=== PATIENT | female | born 1935 | race Caucasian/White ===

== ENCOUNTER → 2016-08-02 | Day surgery (SDC) | payer OTHER ==
[~2016-08-02] MED LIST: ANCEF VIAL 1 GM ONE; BACTROBAN OINT ONE; DIPRIVAN VIAL ONE; MARCAINE 0.25% WITH EPI IJ ONE; NS 1000 ML 1,000 ML ONE; NS IRRIGATION 1000 ML 1,000 ML with BACITRACIN VIAL 50,000 UNT IR ONE; VERSED ONE
[2016-08-02] MEDS: NS 50 ML IV + SPIKE MINIBAG* 50 ML IV ONE ×2 (12:56→14:00)
[2016-08-02 15:11] VITALS: BP 158/76
== END | disposition home or self-care (01) | DRG 581 ==
LOC: SURG1 12:09
PROVIDERS: ATTEND Orthopaedic Surgery
PROC: 0MD30ZZ Extraction of Right Elbow Bursa and Ligament, Open Approach (ICD-10-PCS; principal; 2016-08-02 14:00)
PROC: 0JQG0ZZ Repair Right Lower Arm Subcutaneous Tissue and Fascia, Open Approach (ICD-10-PCS; principal; 2016-08-02 14:00)
DX: S51.012A Laceration without foreign body of left elbow, initial encounter (principal); X58.XXXA Exposure to other specified factors, initial encounter
CPT/HCPCS: 87070; 87075; 87205; 99100; A4222; S0020; J0690; J2250; J3490

== ENCOUNTER → 2016-08-14 | Outpatient (CLI) | payer OTHER ==
[2016-08-02 15:11] VITALS: BP 158/76
--- NOTE | 2016-08-14 14:20 | RAD ---
HISTORY: Followup wrist fracture Study: Two views right forearm Comparison: 07/13/2016 Findings: Distal compression plate and screws are noted traversing the previously described radial fracture. T here are 2 K-wires also projected at the radiocarpal joint. No obvious malalignment. The remaining s oft tissues and osseous structures are stable and intact. IMPRESSION: 1. Interval ORIF of the distal radius as described without complication. Reported By:
== END ==
LOC: RAD 13:25
PROVIDERS: ATTEND Orthopaedic Surgery
DX: S52.591A Other fractures of lower end of right radius, initial encounter for closed fracture (principal); X58.XXXA Exposure to other specified factors, initial encounter
CPT/HCPCS: 73090

== ENCOUNTER 2017-05-15 09:13 | Inpatient (IN) | payer OTHER ==
--- NOTE | 2017-05-15 09:30 | DR.GENAD ---
HPI - HPI Comment HPI Comment: OBVIOUS DEFORMITY LEFT HIP. FELL ACCIDENTALLY. DENIES CHEST PAIN, ABDOMINAL PAIN OR DIZZINESS. - Complaint/Symptoms Chief Complaint Doctors Comments: FELL, PAIN LEFT LOWER EXTREMITY AND HIP. Chief Complaint:: fell. lt lower extremity and hip pain with shortening and rotation. - Nurses notes reviewed Nurses Notes Review: Yes - Source History Provided: Patient, Family Member - Mode of Arrival Mode of Arrival: Wheelchair - Timing Came on: Suddenly - Duration Duration: Constant Duration: Hours - Severity Severity: Moderate PMH - PMH Past Medical History: Anxiety Past Surgical History: Yes Surgical History: Appendectomy - Social History Do you use any recreational Drugs:: No ROS - Review of Systems Constitutional: No Symptoms Reported Eyes: No Symptoms Reported ENTM: No Symptoms Reported Respiratoy: No Symptoms Reported Cardiovascular: No Symptoms Reported Gastrointestinal/Abdominal: No Symptoms Reported Genitourinary: No Symptoms Reported Neurological: No Symptoms Reported Musculoskeletal: Hip Integumentary: No Symptoms Reported Hematologic/Lymphatic: No Symptoms Reported Endocrine: No Symptoms Reported All Other Systems: Reviewed and Negative PE - Vital Signs Vitals: Temperature 97.9 F Pulse Rate 85 Respiratory Rate 20 Blood Pressure [Right Arm] 134/64 Blood Pressure [Left Arm] 149/67 Blood Pressure 194/87 O2 Sat by Pulse Oximetry 96 - General Limitations: No Limitations General Appearance: Alert - Head Head Exam: Normal Inspection - Eyes Eye exam: Normal Appearance - ENT ENT Exam: Normal External Ear Exam External Ear Exam: Normal External Inspection TM/Canal Exam: Bilateral Normal Nose Exam: Normal Nose Exam Mouth Exam: Normal Inspection Throat Exam: Normal Inspection - Chest Chest Inspection: Symmetric Chest Wall Rise - Respiratory Respiratory Exam: Normal Lung Sounds Bilat Respiratory Exam: Bilateral Clear to Auscultation - Cardiovascular Cardiovascular Exam: Regular Rate, Normal Rhythm, Normal Heart Sounds - Abdominal Exam Abdominal Exam: Normal Bowel Sounds, Soft. negative: Tenderness - Extremities Extremities Exam: Tenderness - Back Back Exam: Normal Inspection - Neurologic Neurological Exam: Alert, Oriented X3 - Psychiatric Psychiatric Exam: Normal Affect, Normal Mood - Skin Skin Exam: Normal Color MDM - Additional Information Additional Information Obtained From: Family - Differential Diagnosis Differential Diagnosis: LT HIP FRACTURE, CONTUSION LEFT LEG Course - Treatment Treatment: SEE ORDERS. PAIN MED GIVEN IN ED. - Consultation Consultation Comments: DISCUSS PATIENT WITH DR. GOMEZ. MEDICINE TO ADMIT PATIENT FOR SURGERY IN AM. DR. VIERA ACCEPTED PATIENT FOR ADMISSION. - Education/Counseling Education/Counseling: Patient, Family, Education Educated On: Treatment, Diagnosis ROR - Labs Reviewed Laboratory Results Reviewed?: Yes Result Diagrams: 05/15/17 10:55 05/15/17 10:55 - XRAY XRAY Interpreted by: Radiologist XRAY Findings: REPORT DISCUSS WITH PATIENT AND HER DAUGHTERS - EKG Rhythm: NSR (EKG NOTED) - Diagnosis Discharge Problem: Fracture of neck of left femur Qualifiers: Encounter type: initial encounter Fracture type: closed Qualified Code(s): S72.002A - Fracture of unspecified part of neck of left femur, initial encounter for closed fracture - Discharge Plan Disposition: ADMITTED INPATIENT Condition: Stable - Follow ups/Referrals - Instructions
[2017-05-15] MEDS ORDERED: NAROPIN EPIDURAL 0.2% ONE (10:12)
[2017-05-15] MEDS ORDERED: XYLOCAINE 2 % (PLAIN) ONE (10:12)
[2017-05-15] MEDS ORDERED: VERSED ONE (10:12)
[2017-05-15] MEDS ORDERED: NEO-SYNEPHRINE INJ ONE (10:35)
[2017-05-15] MEDS ORDERED: ZOFRAN INJ 4 MG VIAL IVP ONE (10:43)
[2017-05-15] MEDS ORDERED: MORPHINE SULFATE INJ 2 MG INJ IVP ONE (10:43)
--- NOTE | 2017-05-15 10:45 | RAD ---
HISTORY: Injury, fall, left hip pain Study: AP pelvis Comparison: None Findings: The bones are osteopenic. The pelvic bones and SI joints are intact as is the left hip joint. However there is a comminuted intertrochanteric fracture of the left femoral neck with associated avulsion o f the lesser trochanter. IMPRESSION: Comminuted intertrochanteric fracture left femoral neck Osteopenia Reported By:
--- NOTE | 2017-05-15 10:45 | RAD ---
HISTORY: Injury, fall, left hip pain Study: Left femur AP and lateral Comparison: None Findings: The left hip joint is intact. However there is a comminuted intertrochanteric fracture with avulsion of the lesser trochanter. There is slight cephalad displacement of the distal fracture fragment. IMPRESSION: Comminuted intertrochanteric fracture left femoral neck Reported By:
--- NOTE | 2017-05-15 10:56 | RAD ---
History: Preop for left hip fracture Study: Portable AP chest Comparison: July 23, 2016 Findings: The lungs are clear and the heart and mediastinum are unremarkable. There is no edema or ef fusion. Impression: No active cardiopulmonary disease Reported By:
[2017-05-15 11:04] LABS: BASOPHILS # (AUTO) 0.1 X10^3/uL (0.0-0.1); BASOPHILS % (AUTO) 1.3 % (0.2-1.0); EOSINOPHILS # (AUTO) 0.3 x10^3/uL (0.0-0.2); EOSINOPHILS % (AUTO) 2.7 % (0.9-2.9); HEMATOCRIT 36.5 % (36.0-47.0); LYMPHOCYTES # (AUTO) 0.8 X10^3/uL (1.3-2.9); LYMPHOCYTES % (AUTO) 7.7 % (21.0-51.0); MEAN CORPUSCULAR HEMOGLOBIN 27.8 pg (27.0-34.0); MEAN CORPUSCULAR HGB CONC 32.9 g/dL (33.0-35.0); MEAN CORPUSCULAR VOLUME 84.7 fL (80.0-100.0); MEAN PLATELET VOLUME 8.5 fL (7.4-11.0); MONOCYTES # (AUTO) 0.5 x10^3/uL (0.3-0.8); MONOCYTES % (AUTO) 4.6 % (0.0-13.0); NEUTROPHILS # (AUTO) 8.8 x10^3/uL (2.2-4.8); NEUTROPHILS % (AUTO) 83.7 % (42.0-75.0); PLATELET COUNT 313 X10^3/uL (150.0-450.0); RED BLOOD COUNT 4.31 X10^6/uL (3.5-5.4); RED CELL DISTRIBUTION WIDTH 15.8 % (11.6-16.5); WHITE BLOOD COUNT 10.5 X10^3/uL (3.6-10.0)
[2017-05-15 11:18] LABS: ALANINE AMINOTRANSFERASE 27 Units/L (12-78); ALBUMIN 3.5 g/dL (3.4-5.0); ALKALINE PHOSPHATASE 139 Units/L (46-116); ASPARTATE AMINO TRANSFERASE 33 Units/L (15-37); BLOOD UREA NITROGEN 20 mg/dL (7-18); CALCIUM 8.7 mg/dL (8.5-10.1); CARBON DIOXIDE 25.9 mmol/L (21-32); CHLORIDE 110 mmol/L (98-107); COR NA(FOR HYPERGLY) 145 mmol/L (136-145); CREATININE 0.95 mg/dL (0.55-1.02); SODIUM 145 mmol/L (136-145); TOTAL PROTEIN 6.8 g/dL (6.4-8.2); eGFR BLACK RACES > 60 (>60); eGFR NON BLACK RACES > 60 (>60)
[2017-05-15] MEDS ORDERED: MORPHINE SULFATE INJ 2 MG INJ ONE (11:20)
[2017-05-15] MEDS ORDERED: ZOFRAN INJ 4 MG VIAL ONE (11:20)
--- NOTE | 2017-05-15 12:00 | CT ---
HISTORY: Injury, fall, left hip pain Study: CT left hip without contrast Comparison: Plain films 05/15/2017 Technique: Axial noncontrast images with coronal and sagittal reformats. Three-dimensional reformats were also performed. Dose reduction procedures were used with mA/kv adjusted for body size. Findings: The bones are osteopenic. The sacrum, SI joints, and pelvic bones are intact. The left hip joint is i ntact. There is a comminuted intertrochanteric fracture of the left femoral neck associated with avul milka of the lesser trochanter. There is cephalad displacement of the distal fracture fragment. The ri ght hip joint and proximal femur are intact. IMPRESSION: Comminuted intertrochanteric fracture of the left femoral neck with associated avulsion of the lesser trochanter and cephalic displacement of the distal fracture fragment. Osteopenia Reported By:
[2017-05-15 12:16] LABS: BILIRUBIN,URINE NEGATIVE (NEGATIVE); BLOOD/HEMOGLOBIN,URINE 1+ (NEGATIVE); GLUCOSE, URINE NEGATIVE (NEGATIVE); KETONES,URINE NEGATIVE (NEGATIVE); LEUKOCYTE ESTERASE ,URINE 1+ (NEGATIVE); NITRITES,URINE POSITIVE (NEGATIVE); PROTEIN,URINE 1+ (NEGATIVE); UROBILINOGEN,URINE NORMAL (NORMAL)
[2017-05-15 12:25] LABS: APPEARANCE,URINE HAZY (CLEAR); BACTERIA,URINE 2+ /HPF (NEGATIVE); COLOR,URINE YELLOW (YELLOW); RBC,URINE 0-3 /HPF (NEGATIVE); SQUAMOUS EPITHELIAL CELL,UR RARE /HPF (NEGATIVE)
[2017-05-15] MEDS ORDERED: NS 1000 ML 1,000 ML ONE (12:40)
[2017-05-15] MEDS ORDERED: DIPRIVAN VIAL 20 ML ONE (12:41)
[2017-05-15] MEDS ORDERED: KETALAR ONE (12:41)
[2017-05-15] MEDS ORDERED: XYLOCAINE 1 % (PLAIN) ONE (13:04)
[2017-05-15] MEDS ORDERED: MARCAINE 0.25% INJ ONE (13:12)
[2017-05-15] MEDS ORDERED: ADRENALINE CHL INJ ONE (13:13)
[2017-05-15] MEDS ORDERED: NAROPIN EPIDURAL 0.2% 400 MG, NS 250 ML IV 200 ML EPI PRN ×2 (14:00)
[2017-05-15] MEDS ORDERED: Q PUMP EPI ONE (14:00)
--- NOTE | 2017-05-15 14:03 | DR.H&P ---
H&P - History & Physical for Day of: H&P Date: 05/15/17 - Chief Complaint Chief Complaint: FALL, LEFT HIP PAIN - Allergies Allergies/Adverse Reactions: Allergies Allergy/AdvReac Type Severity Reaction Status Date / Time nitrofurantoin Allergy Verified 05/15/17 11:19 [From Macrobid] - History of Present Illness History of Present Illness: patient is a 81-year-old white female who is an ER admission after presenting with complaints of left hip pain after a fall. Patient's left lower extremity was shortened with external rotation on presentation. Patient had x-ray as well as CT of her left lower extremity revealing a hip fracture. Patient has a past medical history of dementia as well as severe anxiety. Patient is negative for any coronary artery disease or diabetes. Patient admitted for surgical consult and pain control. - Past Medical History Past Medical History: Anxiety - Past Surgical History Surgical History: Appendectomy - Social History Does patient currently use any type of tobacco product: No Have you used tobacco products in the last 12 months: No Type of Tobacco Use: None Does any household member use tobacco: No Alcohol Use: None Drug Use: None - Medications Home Medications: Gabapentin [Neurontin Cap 300 mg] 300 mg PO HS 05/15/17 [History Confirmed 05/15] - Review of Systems Constitutional: No Symptoms Reported Eyes: No Symptoms Reported ENT: No Symptoms Reported Respiratory: No Symptoms Reported Cardiovascular: No Symptoms Reported Gastrointestinal: No Symptoms Reported Genitourinary: No Symptoms Reported Musculoskeletal: Leg Pain Skin: Bruising Neurological: Weakness - Physical Exam Vital Signs: Temperature 97.9 F Pulse Rate [Right Radial] 75 Pulse Rate 85 Respiratory Rate 18 Blood Pressure [Right Arm] 169/77 Blood Pressure [Left Arm] 149/67 Blood Pressure 194/87 O2 Sat by Pulse Oximetry 99 Oriented: Person Eyes: Normal Ear: Normal Nose: Normal Throat: Normal Respiratory: Clear Throughout Cardiovascular: Tachycardia : Normal Auscultation: Bowel Sounds: Normal Palpation: Normal Tenderness: Normal Skin: Bruising Musculoskeletal: Hip, Back:Lumbar, Tender Psychiatric: Anxiety Mood Description: Anxious Speech Pattern: Clear - Assessment/Plan (1) Fracture of neck of left femur Qualifiers: Encounter type: initial encounter Fracture type: closed Qualified Code(s) : S72.002A - Fracture of unspecified part of neck of left femur, initial encounter for closed fracture Status: Acute Plan: NPO, PAIN AND NAUSEA MANAGEMENT, CXR ON ADMISSION. EKG ON ADMISSION, ORTHO CONSULT FOR SURGICAL REPAIR (2) TORSTEN (generalized anxiety disorder) Status: Acute
[2017-05-15] MEDS: ROCEPHIN VIAL 1 GM 1 GM in NS 50 ML IV + SPIKE MINIBAG* 50 ML IV SCH (16:16)
[2017-05-15] MEDS: NS 1000 ML 1,000 ML IV SCH (17:52)
[2017-05-16] MEDS: NS 1000 ML 1,000 ML IV SCH (01:35)
[2017-05-16 06:31] LABS: BASOPHILS # (AUTO) 0.1 X10^3/uL (0.0-0.1); EOSINOPHILS # (AUTO) 0.2 x10^3/uL (0.0-0.2); EOSINOPHILS % (AUTO) 3.9 % (0.9-2.9); HEMATOCRIT 28.1 % (36.0-47.0); HEMOGLOBIN 9.4 g/dL (12.0-16.0); LYMPHOCYTES # (AUTO) 1.3 X10^3/uL (1.3-2.9); LYMPHOCYTES % (AUTO) 21.5 % (21.0-51.0); MEAN CORPUSCULAR HEMOGLOBIN 28.2 pg (27.0-34.0); MEAN CORPUSCULAR HGB CONC 33.3 g/dL (33.0-35.0); MEAN CORPUSCULAR VOLUME 84.7 fL (80.0-100.0); MEAN PLATELET VOLUME 9.1 fL (7.4-11.0); MONOCYTES # (AUTO) 0.5 x10^3/uL (0.3-0.8); MONOCYTES % (AUTO) 8.8 % (0.0-13.0); NEUTROPHILS # (AUTO) 3.9 x10^3/uL (2.2-4.8); NEUTROPHILS % (AUTO) 64.8 % (42.0-75.0); PLATELET COUNT 264 X10^3/uL (150.0-450.0); RED BLOOD COUNT 3.32 X10^6/uL (3.5-5.4); RED CELL DISTRIBUTION WIDTH 15.6 % (11.6-16.5)
[2017-05-16] MEDS ORDERED: MARCAINE 0.25% INJ ONE (08:14)
[2017-05-16] MEDS: ROCEPHIN VIAL 1 GM 1 GM in NS 50 ML IV + SPIKE MINIBAG* 50 ML IV SCH (09:30)
[2017-05-16] MEDS ORDERED: NS IRRIGATION 1000 ML 1,000 ML with BACITRACIN VIAL 50,000 UNT IR ONE ×2 (09:41)
[2017-05-16] MEDS ORDERED: NS IRRIGATION 1000 ML 1,000 ML IR ONE (09:41)
[2017-05-16] MEDS ORDERED: HYDROGEN PEROXIDE 3% ONE (09:42)
[2017-05-16] MEDS ORDERED: BACTROBAN OINT ONE (09:55)
[2017-05-16 10:00] VITALS: BMI 20.7
[2017-05-16] MEDS ORDERED: BENADRYL INJ 50 MG VIAL IVP PRN (10:23)
[2017-05-16] MEDS ORDERED: DILAUDID INJ IVP PRN (10:23)
[2017-05-16] MEDS ORDERED: ZOFRAN INJ 4 MG VIAL IVP PRN (10:23)
--- NOTE | 2017-05-16 10:32 | DR.CONSULT ---
Consult - Consultation for Day of: Date: 05/16/17 (left hip fracture) - Chief Complaint Chief Complaint: fall and fractured left hip. xr and ct confirmed ledft hipIT fracture. - Allergies Allergies/Adverse Reactions: Allergies Allergy/AdvReac Type Severity Reaction Status Date / Time nitrofurantoin Allergy Verified 05/15/17 11:19 [From Macrobid] - Past Medical History Past Medical History: Anxiety - Past Surgical History Surgical History: Appendectomy - Social History Does patient currently use any type of tobacco product: No Have you used tobacco products in the last 12 months: No Type of Tobacco Use: None Does any household member use tobacco: No Alcohol Use: None Drug Use: None - Medications Home Medications: Gabapentin [Neurontin Cap 300 mg] 300 mg PO HS 05/15/17 [History Confirmed 05/15] - Physical Exam Vital Signs: Temperature 98.8 F Pulse Rate [Right Radial] 85 Pulse Rate 85 Respiratory Rate 20 Blood Pressure [Right Arm] 144/66 Blood Pressure [Left Arm] 122/62 Blood Pressure 194/87 O2 Sat by Pulse Oximetry 96 - Plan Plan: left hip gamma nail.
[2017-05-16] MEDS ORDERED: ROCEPHIN 1 GM IV PREMIX 1 GM/50 ML IV.SOLN. IV SCH (11:00)
--- NOTE | 2017-05-16 11:19 | RAD ---
Examination: Left hip, two views History: Postop Comparison reference 05/15/2017 Findings: There is a new intramedullary nail in the proximal femur with a transfixed screw passing th rough the femoral neck into the femoral head. The neck-shaft angle is anatomic, varus deformity has b een corrected. The femoral head is in normal position. No postoperative abnormality is demonstrated. Impression: Interval ORIF of left femoral fracture with essentially anatomic position and alignment. Reported By:
--- NOTE | 2017-05-16 14:19 | PCM.PROG ---
Progress Note - Progress Note for Day of Date: 05/16/17 - Subjective Subjective: NPO FOR SURGICAL REPAIR L HIP FRACTURE PER DR GOMEZ - Past Medical Family Social History Past Med/Fam/Surg Hx: No changes since H&P Allergies: Allergies nitrofurantoin [From Macrobid] Allergy (Verified 05/15/17 11:19) - Review of Systems ROS: No change since H&P - Vital Signs and I&O's Vital Signs: Temperature 98.3 F Pulse Rate [Left Brachial] 97 Pulse Rate [Right Radial] 85 Pulse Rate 82 Respiratory Rate 18 Blood Pressure [Right Arm] 144/66 Blood Pressure [Left Arm] 127/60 Blood Pressure 115/56 O2 Sat by Pulse Oximetry 98 Intake and Output: Intake & Output 05/14/17 05/15/17 05/16/17 05/17/17 11:59 11:59 11:59 11:59 Intake Total 1499 Output Total 1695 Balance -196 - Physical Exam Oriented: Person Eyes: Normal Ear: Normal Nose: Normal Throat: Normal Cardiovascular: Tachycardia : Normal Auscultation: Bowel Sounds: Normal Tenderness: Normal Skin: Bruising Musculoskeletal: Hip, Back:Lumbar, Tender Psychiatric: Anxiety Mood Description: Calm, Anxious Speech Pattern: Clear, Appropriate - Laboratory and Diagnostics Result Diagrams: 05/16/17 05:00 05/15/17 10:55 Labs: 05/15/17 12:03 Urine,Catheterized Urine Culture - Preliminary Laboratory WBC 6.0 X10^3/uL (3.6-10.0) 05/16/17 05:00 RBC 3.32 X10^6/uL (3.5-5.4) L 05/16/17 05:00 Hgb 9.4 g/dL (12.0-16.0) L D 05/16/17 05:00 Hct 28.1 % (36.0-47.0) L 05/16/17 05:00 MCV 84.7 fL (80.0-100.0) 05/16/17 05:00 MCH 28.2 pg (27.0-34.0) 05/16/17 05:00 MCHC 33.3 g/dL (33.0-35.0) 05/16/17 05:00 RDW 15.6 % (11.6-16.5) 05/16/17 05:00 Plt Count 264 X10^3/uL (150.0-450.0) 05/16/17 05:00 MPV 9.1 fL (7.4-11.0) 05/16/17 05:00 Neut % 64.8 % (42.0-75.0) 05/16/17 05:00 Lymph % 21.5 % (21.0-51.0) 05/16/17 05:00 Jack % 8.8 % (0.0-13.0) 05/16/17 05:00 Eos % 3.9 % (0.9-2.9) H 05/16/17 05:00 Baso % 1.0 % (0.2-1.0) 05/16/17 05:00 Neut # 3.9 x10^3/uL (2.2-4.8) 05/16/17 05:00 Lymph # 1.3 X10^3/uL (1.3-2.9) 05/16/17 05:00 Jack # 0.5 x10^3/uL (0.3-0.8) 05/16/17 05:00 Eos # 0.2 x10^3/uL (0.0-0.2) 05/16/17 05:00 Baso # 0.1 X10^3/uL (0.0-0.1) 05/16/17 05:00 Absolute Nucleated RBC 0.0 /100WBC 05/16/17 05:00 INR Target Range - 05/15/17 10:55 INR 0.99 (0.8-1.3) 05/15/17 10:55 PTT 28.6 SECONDS (22.9-36.5) 05/15/17 10:55 PTT Comment - 05/15/17 10:55 Sodium 145 mmol/L (136-145) 05/15/17 10:55 Corrected Sodium 145 mmol/L (136-145) 05/15/17 10:55 Potassium 3.7 mmol/L (3.5-5.1) 05/15/17 10:55 Chloride 110 mmol/L (98-107) H 05/15/17 10:55 Carbon Dioxide 25.9 mmol/L (21-32) 05/15/17 10:55 BUN 20 mg/dL (7-18) H 05/15/17 10:55 Creatinine 0.95 mg/dL (0.55-1.02) 05/15/17 10:55 Est GFR (MDRD) Af Amer > 60 (>60) 05/15/17 10:55 Est GFR (MDRD) Non-Af > 60 (>60) 05/15/17 10:55 Glucose 112 mg/dL (65-99) H 05/15/17 10:55 Calcium 8.7 mg/dL (8.5-10.1) 05/15/17 10:55 Corrected Calcium TNP 05/15/17 10:55 Total Bilirubin 0.30 mg/dL (0.2-1.0) 05/15/17 10:55 AST 33 Units/L (15-37) 05/15/17 10:55 ALT 27 Units/L (12-78) 05/15/17 10:55 Alkaline Phosphatase 139 Units/L (46-116) H 05/15/17 10:55 Total Protein 6.8 g/dL (6.4-8.2) 05/15/17 10:55 Albumin 3.5 g/dL (3.4-5.0) 05/15/17 10:55 Globulin 3.3 g/dL (2.5-4.5) 05/15/17 10:55 Albumin/Globulin Ratio 1.1 Ratio (1.1-2.1) 05/15/17 10:55 Specimen Type Clean catch urine 05/15/17 12:03 Urine Color Yellow (YELLOW) 05/15/17 12:03 Urine Appearance Hazy (CLEAR) 05/15/17 12:03 Urine pH 5.0 (5.0 - 8.0) 05/15/17 12:03 Ur Specific [place] 1.020 (1.000-1.030) 05/15/17 12:03 Urine Protein 1+ (NEGATIVE) 05/15/17 12:03 Urine Glucose (UA) Negative (NEGATIVE) 05/15/17 12:03 Urine Ketones Negative (NEGATIVE) 05/15/17 12:03 Urine Occult Blood 1+ (NEGATIVE) 05/15/17 12:03 Urine Nitrite Positive (NEGATIVE) 05/15/17 12:03 Urine Bilirubin Negative (NEGATIVE) 05/15/17 12:03 Urine Urobilinogen Normal (NORMAL) 05/15/17 12:03 Ur Leukocyte Esterase 1+ (NEGATIVE) 05/15/17 12:03 Urine RBC 0-3 /HPF (NEGATIVE) 05/15/17 12:03 Urine WBC 5-10 /HPF (NEGATIVE) 05/15/17 12:03 Ur Squamous Epith Cells Rare /HPF (NEGATIVE) 05/15/17 12:03 Urine Bacteria 2+ /HPF (NEGATIVE) 05/15/17 12:03 Ur Culture Indicated? Yes/culture set up 05/15/17 12:03 Blood Type O POSITIVE 05/15/17 11:55 Antibody Screen Negative 05/15/17 11:55 Crossmatch See Detail 05/15/17 11:55 - Plan (1) Fracture of neck of left femur Status: Acute Qualifiers: Encounter type: initial encounter Fracture type: closed Qualified Code(s) : S72.002A - Fracture of unspecified part of neck of left femur, initial encounter for closed fracture Plan: NPO, PAIN AND NAUSEA MANAGEMENT, ORTHO CONSULT, SURGICAL INTERVENTION PLANNED FOR THIS AM (2) TORSTEN (generalized anxiety disorder) Status: Acute
[2017-05-16] MEDS: ANCEF 1 GM IV PREMIX* 1 GM/50 ML BAG IV SCH ×2 (14:23→21:13)
[2017-05-16] MEDS: ZINC SULFATE PO SCH (14:29)
[2017-05-16] MEDS: VITAMIN C PO SCH (14:29)
[2017-05-16] MEDS: TAB-A-VITE PO SCH (14:29)
[2017-05-16] MEDS: VISTARIL PO PRN (21:41)
[2017-05-17] MEDS: ANCEF 1 GM IV PREMIX* 1 GM/50 ML BAG IV SCH ×2 (02:30→09:44)
[2017-05-17 06:07] LABS: BASOPHILS # (AUTO) 0.1 X10^3/uL (0.0-0.1); BASOPHILS % (AUTO) 0.9 % (0.2-1.0); EOSINOPHILS # (AUTO) 0.1 x10^3/uL (0.0-0.2); EOSINOPHILS % (AUTO) 1.4 % (0.9-2.9); HEMATOCRIT 25.5 % (36.0-47.0); HEMOGLOBIN 8.7 g/dL (12.0-16.0); LYMPHOCYTES # (AUTO) 1.3 X10^3/uL (1.3-2.9); LYMPHOCYTES % (AUTO) 18.4 % (21.0-51.0); MEAN CORPUSCULAR HEMOGLOBIN 28.6 pg (27.0-34.0); MEAN CORPUSCULAR HGB CONC 34.1 g/dL (33.0-35.0); MEAN CORPUSCULAR VOLUME 83.9 fL (80.0-100.0); MEAN PLATELET VOLUME 9.1 fL (7.4-11.0); MONOCYTES # (AUTO) 0.8 x10^3/uL (0.3-0.8); MONOCYTES % (AUTO) 11.7 % (0.0-13.0); NEUTROPHILS # (AUTO) 4.8 x10^3/uL (2.2-4.8); NEUTROPHILS % (AUTO) 67.6 % (42.0-75.0); PLATELET COUNT 254 X10^3/uL (150.0-450.0); RED BLOOD COUNT 3.04 X10^6/uL (3.5-5.4); RED CELL DISTRIBUTION WIDTH 15.5 % (11.6-16.5)
[2017-05-17] MEDS: NS 1000 ML 1,000 ML IV SCH (07:21)
[2017-05-17 07:55] LABS: BLOOD UREA NITROGEN 12 mg/dL (7-18); CALCIUM 7.9 mg/dL (8.5-10.1); CARBON DIOXIDE 22.1 mmol/L (21-32); CHLORIDE 106 mmol/L (98-107); COR NA(FOR HYPERGLY) 141 mmol/L (136-145); CREATININE 0.77 mg/dL (0.55-1.02); SODIUM 140 mmol/L (136-145); eGFR BLACK RACES > 60 (>60); eGFR NON BLACK RACES > 60 (>60)
[2017-05-17] MEDS ORDERED: MAG-OX TAB PO PRN (08:10)
[2017-05-17] MEDS ORDERED: K-RIDER 10 MEQ/NS 100 ML 10 MEQ/100 ML BAG IV PRN (08:10)
[2017-05-17] MEDS ORDERED: POTASSIUM CHLORIDE LIQ 20 MEQ UDC PO PRN (08:10)
[2017-05-17] MEDS ORDERED: POTASSIUM CHL 40 MEQ/NS 0.45% 500 ML IV PRN (08:10)
[2017-05-17] MEDS ORDERED: K-LYTE EFFERVESCENT PO PRN (08:10)
[2017-05-17] MEDS ORDERED: MAGNESIUM SULFATE 1 GM/100 mL PREMIX 1 GM/100 ML BAG IV PRN (08:10)
[2017-05-17] MEDS ORDERED: POTASSIUM CHL 60 MEQ/NS 0.45% 500 ML IV PRN (08:10)
[2017-05-17] MEDS ORDERED: PATIENT'S HOME MEDICATION (Buspirone Hcl [Buspirone Hcl] 1 TAB) PO SCH (09:00)
[2017-05-17] MEDS: ROCEPHIN VIAL 1 GM 1 GM in NS 50 ML IV + SPIKE MINIBAG* 50 ML IV SCH (09:44)
[2017-05-17] MEDS: ZINC SULFATE PO SCH (09:44)
[2017-05-17] MEDS: VITAMIN C PO SCH (09:44)
[2017-05-17] MEDS: TAB-A-VITE PO SCH (09:44)
[2017-05-17] MEDS: ASPIRIN 81 MG CHEWTAB PO SCH (10:30)
[2017-05-17] MEDS: BUSPAR PO SCH ×2 (10:31→22:03)
[2017-05-17] MEDS: NS + KCL 40 MEQ/L 1,000 ML IV SCH ×2 (11:09→16:08)
[2017-05-17] MEDS ORDERED: BUSPAR PO SCH (14:00)
[2017-05-17] MEDS ORDERED: MIRTAZAPINE 15 MG PO SCH (21:00)
[2017-05-17] MEDS: LOVENOX INJ 40 MG SYR SC SCH (22:01)
[2017-05-17] MEDS: NEURONTIN CAP 300 MG PO SCH (22:02)
[2017-05-17] MEDS: REMERON PO SCH (22:02)
[2017-05-18 06:02] LABS: BASOPHILS # (AUTO) 0.1 X10^3/uL (0.0-0.1); BASOPHILS % (AUTO) 1.3 % (0.2-1.0); EOSINOPHILS # (AUTO) 0.4 x10^3/uL (0.0-0.2); EOSINOPHILS % (AUTO) 5.2 % (0.9-2.9); HEMATOCRIT 24.5 % (36.0-47.0); HEMOGLOBIN 8.3 g/dL (12.0-16.0); LYMPHOCYTES # (AUTO) 1.6 X10^3/uL (1.3-2.9); LYMPHOCYTES % (AUTO) 21.2 % (21.0-51.0); MEAN CORPUSCULAR HEMOGLOBIN 28.6 pg (27.0-34.0); MEAN CORPUSCULAR VOLUME 84.1 fL (80.0-100.0); MEAN PLATELET VOLUME 9.2 fL (7.4-11.0); MONOCYTES # (AUTO) 0.8 x10^3/uL (0.3-0.8); MONOCYTES % (AUTO) 11.5 % (0.0-13.0); NEUTROPHILS # (AUTO) 4.4 x10^3/uL (2.2-4.8); NEUTROPHILS % (AUTO) 60.8 % (42.0-75.0); PLATELET COUNT 237 X10^3/uL (150.0-450.0); RED BLOOD COUNT 2.92 X10^6/uL (3.5-5.4); RED CELL DISTRIBUTION WIDTH 15.7 % (11.6-16.5); WHITE BLOOD COUNT 7.3 X10^3/uL (3.6-10.0)
[2017-05-18 06:16] LABS: BLOOD UREA NITROGEN 9 mg/dL (7-18); CALCIUM 7.9 mg/dL (8.5-10.1); CARBON DIOXIDE 22.9 mmol/L (21-32); CHLORIDE 107 mmol/L (98-107); CREATININE 0.69 mg/dL (0.55-1.02); MAGNESIUM 1.7 mg/dL (1.7-2.9); SODIUM 140 mmol/L (136-145); eGFR BLACK RACES > 60 (>60); eGFR NON BLACK RACES > 60 (>60)
[2017-05-18] MEDS: ROCEPHIN VIAL 1 GM 1 GM in NS 100 ML IV + SPIKE MINIBAG* 100 ML IV SCH (09:30)
[2017-05-18] MEDS: ZINC SULFATE PO SCH (09:30)
[2017-05-18] MEDS: ASPIRIN 81 MG CHEWTAB PO SCH (09:31)
[2017-05-18] MEDS: TAB-A-VITE PO SCH (09:32)
[2017-05-18] MEDS: VITAMIN C PO SCH (09:32)
[2017-05-18] MEDS: BUSPAR PO SCH ×2 (09:33→21:16)
[2017-05-18] MEDS: LOVENOX INJ 40 MG SYR SC SCH (09:33)
[2017-05-18] MEDS: PERCOCET TAB 5/325 MG PO PRN ×2 (12:05→18:21)
[2017-05-18] MEDS: NS + KCL 40 MEQ/L 1,000 ML IV SCH ×2 (14:23→14:26)
[2017-05-18] MEDS: REMERON PO SCH (21:16)
[2017-05-18] MEDS: COLACE CAP 100 MG PO PRN (21:17)
[2017-05-18] MEDS: NEURONTIN CAP 300 MG PO SCH (21:17)
[2017-05-18] MEDS: MILK OF MAGNESIA PO PRN (21:17)
[2017-05-19 06:16] LABS: BLOOD UREA NITROGEN 22 mg/dL (7-18); CALCIUM 7.9 mg/dL (8.5-10.1); CARBON DIOXIDE 28.8 mmol/L (21-32); CHLORIDE 110 mmol/L (98-107); CREATININE 0.86 mg/dL (0.55-1.02); SODIUM 143 mmol/L (136-145); eGFR BLACK RACES > 60 (>60); eGFR NON BLACK RACES > 60 (>60)
[2017-05-19 06:28] LABS: BASOPHILS # (AUTO) 0.1 X10^3/uL (0.0-0.1); BASOPHILS % (AUTO) 1.4 % (0.2-1.0); EOSINOPHILS # (AUTO) 0.6 x10^3/uL (0.0-0.2); EOSINOPHILS % (AUTO) 10.9 % (0.9-2.9); HEMATOCRIT 22.7 % (36.0-47.0); HEMOGLOBIN 7.6 g/dL (12.0-16.0); LYMPHOCYTES # (AUTO) 1.6 X10^3/uL (1.3-2.9); LYMPHOCYTES % (AUTO) 26.7 % (21.0-51.0); MEAN CORPUSCULAR HEMOGLOBIN 28.3 pg (27.0-34.0); MEAN CORPUSCULAR HGB CONC 33.6 g/dL (33.0-35.0); MEAN CORPUSCULAR VOLUME 84.3 fL (80.0-100.0); MEAN PLATELET VOLUME 8.9 fL (7.4-11.0); MONOCYTES # (AUTO) 0.5 x10^3/uL (0.3-0.8); MONOCYTES % (AUTO) 8.7 % (0.0-13.0); NEUTROPHILS # (AUTO) 3.1 x10^3/uL (2.2-4.8); NEUTROPHILS % (AUTO) 52.3 % (42.0-75.0); PLATELET COUNT 302 X10^3/uL (150.0-450.0); RED CELL DISTRIBUTION WIDTH 15.9 % (11.6-16.5); WHITE BLOOD COUNT 5.9 X10^3/uL (3.6-10.0)
[2017-05-19 07:14] LABS: HYPOCHROMASIA SLIGHT; PLATELET MORPHOLOGY COMMENT NORMAL (NORMAL)
[2017-05-19] MEDS: PERCOCET TAB 5/325 MG PO PRN ×2 (07:19→21:26)
[2017-05-19] MEDS: ROCEPHIN VIAL 1 GM 1 GM in NS 100 ML IV + SPIKE MINIBAG* 100 ML IV SCH (10:02)
[2017-05-19] MEDS: LOVENOX INJ 40 MG SYR SC SCH (10:03)
[2017-05-19] MEDS: TAB-A-VITE PO SCH (10:04)
[2017-05-19] MEDS: VITAMIN C PO SCH (10:04)
[2017-05-19] MEDS: BUSPAR PO SCH ×2 (10:04→21:26)
[2017-05-19] MEDS: ASPIRIN 81 MG CHEWTAB PO SCH (10:04)
[2017-05-19] MEDS: ZINC SULFATE PO SCH (10:05)
--- NOTE | 2017-05-19 13:33 | PCM.PROG ---
Progress Note - Progress Note for Day of Date: 05/19/17 - Subjective Subjective: doing well. family plans to get her to a rehab center. currently doing good with pain management. and PT WBAT. post op XR looks good. - Past Medical Family Social History Past Med/Fam/Surg Hx: No changes since H&P Allergies: Allergies nitrofurantoin [From Macrobid] Allergy (Verified 05/15/17 11:19) - Review of Systems ROS: No change since H&P - Vital Signs and I&O's Vital Signs: Temperature 98.9 F Pulse Rate [Left Brachial] 86 Pulse Rate [Right Radial] 93 Pulse Rate 101 Respiratory Rate 18 Blood Pressure [Right Arm] 114/54 Blood Pressure [Left Arm] 152/66 Blood Pressure 115/56 O2 Sat by Pulse Oximetry 97 Intake and Output: Intake & Output 05/17/17 05/18/17 05/19/17 05/20/17 11:59 11:59 11:59 11:59 Intake Total 1320 1295 2030 Output Total 1075 1550 900 Balance 245 -255 1130 - Physical Exam Oriented: Person Eyes: Normal Ear: Normal Nose: Normal Throat: Normal Cardiovascular: Tachycardia : Normal Auscultation: Bowel Sounds: Normal Tenderness: Normal Skin: Bruising Musculoskeletal: Hip, Back:Lumbar, Tender Psychiatric: Anxiety Mood Description: Calm, Anxious Speech Pattern: Clear, Appropriate - Laboratory and Diagnostics Result Diagrams: 05/19/17 04:50 05/19/17 04:50 Labs: 05/15/17 12:03 Urine,Catheterized Urine Culture - Final Escherichia Coli Laboratory WBC 5.9 X10^3/uL (3.6-10.0) 05/19/17 04:50 RBC 2.70 X10^6/uL (3.5-5.4) L 05/19/17 04:50 Hgb 7.6 g/dL (12.0-16.0) L 05/19/17 04:50 Hct 22.7 % (36.0-47.0) L 05/19/17 04:50 MCV 84.3 fL (80.0-100.0) 05/19/17 04:50 MCH 28.3 pg (27.0-34.0) 05/19/17 04:50 MCHC 33.6 g/dL (33.0-35.0) 05/19/17 04:50 RDW 15.9 % (11.6-16.5) 05/19/17 04:50 Plt Count 302 X10^3/uL (150.0-450.0) 05/19/17 04:50 Plt Count Comment Adequate (ADEQUATE) 05/19/17 04:50 MPV 8.9 fL (7.4-11.0) 05/19/17 04:50 Neut % 52.3 % (42.0-75.0) 05/19/17 04:50 Lymph % 26.7 % (21.0-51.0) 05/19/17 04:50 [place] % 8.7 % (0.0-13.0) 05/19/17 04:50 Eos % 10.9 % (0.9-2.9) H 05/19/17 04:50 Baso % 1.4 % (0.2-1.0) H 05/19/17 04:50 Neut # 3.1 x10^3/uL (2.2-4.8) 05/19/17 04:50 Lymph # 1.6 X10^3/uL (1.3-2.9) 05/19/17 04:50 [place] # 0.5 x10^3/uL (0.3-0.8) 05/19/17 04:50 Eos # 0.6 x10^3/uL (0.0-0.2) H 05/19/17 04:50 Baso # 0.1 X10^3/uL (0.0-0.1) 05/19/17 04:50 Absolute Nucleated RBC 0.0 /100WBC 05/19/17 04:50 Plt Morphology Comment Normal (NORMAL) 05/19/17 04:50 RBC Morphology Abnormal (NORMAL) A 05/19/17 04:50 Hypochromasia Slight A 05/19/17 04:50 INR Target Range - 05/15/17 10:55 INR 0.99 (0.8-1.3) 05/15/17 10:55 PTT 28.6 SECONDS (22.9-36.5) 05/15/17 10:55 PTT Comment - 05/15/17 10:55 Sodium 143 mmol/L (136-145) 05/19/17 04:50 Corrected Sodium TNP 05/19/17 04:50 Potassium 4.8 mmol/L (3.5-5.1) 05/19/17 04:50 Chloride 110 mmol/L (98-107) H 05/19/17 04:50 Carbon Dioxide 28.8 mmol/L (21-32) 05/19/17 04:50 BUN 22 mg/dL (7-18) H 05/19/17 04:50 Creatinine 0.86 mg/dL (0.55-1.02) 05/19/17 04:50 Est GFR (MDRD) Af Amer > 60 (>60) 05/19/17 04:50 Est GFR (MDRD) Non-Af > 60 (>60) 05/19/17 04:50 Glucose 102 mg/dL (65-99) H 05/19/17 04:50 Calcium 7.9 mg/dL (8.5-10.1) L 05/19/17 04:50 Corrected Calcium TNP 05/15/17 10:55 Magnesium 1.7 mg/dL (1.7-2.9) 05/18/17 04:30 Total Bilirubin 0.30 mg/dL (0.2-1.0) 05/15/17 10:55 AST 33 Units/L (15-37) 05/15/17 10:55 ALT 27 Units/L (12-78) 05/15/17 10:55 Alkaline Phosphatase 139 Units/L (46-116) H 05/15/17 10:55 Total Protein 6.8 g/dL (6.4-8.2) 05/15/17 10:55 Albumin 3.5 g/dL (3.4-5.0) 05/15/17 10:55 Globulin 3.3 g/dL (2.5-4.5) 05/15/17 10:55 Albumin/Globulin Ratio 1.1 Ratio (1.1-2.1) 05/15/17 10:55 Specimen Type Clean catch urine 05/15/17 12:03 Urine Color Yellow (YELLOW) 05/15/17 12:03 Urine Appearance Hazy (CLEAR) 05/15/17 12:03 Urine pH 5.0 (5.0 - 8.0) 05/15/17 12:03 Ur Specific [place] 1.020 (1.000-1.030) 05/15/17 12:03 Urine Protein 1+ (NEGATIVE) 05/15/17 12:03 Urine Glucose (UA) Negative (NEGATIVE) 05/15/17 12:03 Urine Ketones Negative (NEGATIVE) 05/15/17 12:03 Urine Occult Blood 1+ (NEGATIVE) 05/15/17 12:03 Urine Nitrite Positive (NEGATIVE) 05/15/17 12:03 Urine Bilirubin Negative (NEGATIVE) 05/15/17 12:03 Urine Urobilinogen Normal (NORMAL) 05/15/17 12:03 Ur Leukocyte Esterase 1+ (NEGATIVE) 05/15/17 12:03 Urine RBC 0-3 /HPF (NEGATIVE) 05/15/17 12:03 Urine WBC 5-10 /HPF (NEGATIVE) 05/15/17 12:03 Ur Squamous Epith Cells Rare /HPF (NEGATIVE) 05/15/17 12:03 Urine Bacteria 2+ /HPF (NEGATIVE) 05/15/17 12:03 Ur Culture Indicated? Yes/culture set up 05/15/17 12:03 Blood Type O POSITIVE 05/15/17 11:55 Antibody Screen Negative 05/15/17 11:55 Crossmatch See Detail 05/15/17 11:55 - Plan (1) Closed intertrochanteric fracture of left hip Status: Acute Plan: WBAT. pain management. Anti DVT as advised. FU as advised. wound care as advised.
[2017-05-19] MEDS ORDERED: NS 500 ML IV 500 ML IV ONE (14:58)
[2017-05-19] MEDS: NEURONTIN CAP 300 MG PO SCH (21:26)
[2017-05-19] MEDS: REMERON PO SCH (21:26)
[2017-05-19] MEDS: VISTARIL PO PRN (21:26)
[2017-05-20] MEDS: PERCOCET TAB 5/325 MG PO PRN ×2 (02:49→20:23)
[2017-05-20 06:25] LABS: BASOPHILS # (AUTO) 0.1 X10^3/uL (0.0-0.1); BASOPHILS % (AUTO) 1.8 % (0.2-1.0); EOSINOPHILS # (AUTO) 0.9 x10^3/uL (0.0-0.2); EOSINOPHILS % (AUTO) 13.4 % (0.9-2.9); HEMATOCRIT 26.8 % (36.0-47.0); LYMPHOCYTES # (AUTO) 1.8 X10^3/uL (1.3-2.9); LYMPHOCYTES % (AUTO) 25.8 % (21.0-51.0); MEAN CORPUSCULAR HEMOGLOBIN 29.2 pg (27.0-34.0); MEAN CORPUSCULAR HGB CONC 33.7 g/dL (33.0-35.0); MEAN CORPUSCULAR VOLUME 86.5 fL (80.0-100.0); MEAN PLATELET VOLUME 8.5 fL (7.4-11.0); MONOCYTES # (AUTO) 0.6 x10^3/uL (0.3-0.8); MONOCYTES % (AUTO) 8.1 % (0.0-13.0); NEUTROPHILS # (AUTO) 3.6 x10^3/uL (2.2-4.8); NEUTROPHILS % (AUTO) 50.9 % (42.0-75.0); PLATELET COUNT 375 X10^3/uL (150.0-450.0); WHITE BLOOD COUNT 7.1 X10^3/uL (3.6-10.0)
[2017-05-20 06:27] LABS: BLOOD UREA NITROGEN 21 mg/dL (7-18); CARBON DIOXIDE 25.3 mmol/L (21-32); CHLORIDE 108 mmol/L (98-107); CREATININE 0.78 mg/dL (0.55-1.02); SODIUM 140 mmol/L (136-145); eGFR BLACK RACES > 60 (>60); eGFR NON BLACK RACES > 60 (>60)
[2017-05-20] MEDS: LOVENOX INJ 40 MG SYR SC SCH (09:33)
[2017-05-20] MEDS: ZINC SULFATE PO SCH (09:34)
[2017-05-20] MEDS: TAB-A-VITE PO SCH (09:34)
[2017-05-20] MEDS: MILK OF MAGNESIA PO PRN (09:34)
[2017-05-20] MEDS: COLACE CAP 100 MG PO PRN (09:34)
[2017-05-20] MEDS: ASPIRIN 81 MG CHEWTAB PO SCH (09:34)
[2017-05-20] MEDS: ROCEPHIN VIAL 1 GM 1 GM in NS 100 ML IV + SPIKE MINIBAG* 100 ML IV SCH (11:37)
[2017-05-20] MEDS: VITAMIN C PO SCH (11:42)
[2017-05-20] MEDS: BUSPAR PO SCH ×2 (11:42→20:23)
--- NOTE | 2017-05-20 13:48 | OR.GENERIC ---
Post-Op Note Generic - Post-Op Note Operative Report: PREOPERATIVE DIAGNOSIS: Displaced left inter- trochanteric femur fracture, osteoporotic, pathological fracture. POSTOPERATIVE DIAGNOSIS: Displaced left inter- trochanteric femur fracture, osteoporotic, pathological fracture. OPERATION: LEFT intertrochanteric fracture treated with Intramedullary jam in the left hip Implants used: Gamma 3 system, [place] 340 X 10 mm long nail, 130, 105 mm hip screw COMPLICATIONS: None. TOURNIQUET TIME: None. ESTIMATED BLOOD LOSS: 50 mL. ANESTHESIA: General. INDICATIONS: The patient suffered a trip and fall at his home. At which time she was taken to the emergency room with pain in the lower extremities. She was diagnosed with displaced left intertrochanteric fracture, now was asked to consult. With this diagnosis, she was indicated the above-noted procedure. This procedure as well as alternatives to this procedure was discussed at length with the patient and her daughters, who has the power of deputy attorney general, and they understood them well. Risks and benefits were also discussed. Risks include bleeding, infection, damage to blood vessels, damage to nerves, risk of further surgery, chronic pain , restricted range of motion, risk of continued discomfort, risk of malunion, risk of nonunion, risk of need for further reconstructive procedures, risk of need for altered activities and altered gait, avascular necrosis, nonunion, malunion, penetration of the hip screw into the hip joint, implant failure, need of conversion to total hip, risk of blood clots, pulmonary embolism, myocardial infarction, and risk of were discussed. She understood these well and consented, and the daughters signed the consent for the procedure as described. DESCRIPTION OF PROCEDURE: The patient was placed on the operating table and general anesthesia was achieved. The patient was then placed in fracture table and the Left leg was placed in a well-leg garcia. Obtained closed reduction by applying inline traction first to distract fracture, then adduct and internally rotate leg. Checked in AP and lateral fluoroscopy control to get anatomical alignment. At this point, the left hip and left lower extremity was then prepped and draped in the usual sterile manner. An incision about 3 cm made 4 cm above the greater trochanter tip. Dissection taken through the TFL and G medius. A guidepin was placed over the appropriate starting point which is at the medial tip of greater trochanter. The guidepin was slowly advanced into the proximal canal across the fracture site and fluoroscopy confirmed intramedullary placement of the guidepin. The soft tissue protector was used throughout the procedure. Proximal conical reaming done with the entry reamer. At this time a ball-tipped guidewire was exchanged over an exchange tube. AP and lateral fluoroscopy was checked to confirm the placement of the intramedullary position of the guide wire tip. Measurement was done. Sequential reaming of the wrist to the femur was completed to 11.5. Fluoroscopy was used during the Reaming. The appropriate size nail was built on the back table and made sure that the targeting guides aligned with the holes in the nail. The nail was advanced over the guidewire and fully seated. Ball-tipped guidewire was taken out. Using the trocar and sleeve the guidepin for lag screw was in inserted next. A guidewire was inserted and felt to be in proper position, in the posterior aspect of the femoral head, lateral, and the center position on AP. Reaming was done of the guide wire and a hip screw was inserted. Traction was removed and compression across the fracture site noted. Distal locking performed freehand. We did a near anatomical alignment to the fracture site and all hardware was properly fixed. Proper size and fit was noted. Excellent bony approximation was noted. At this point, both wounds were thoroughly irrigated, hemostasis confirmed, and closure was then begun. The fascial layers were then reapproximated using #1 Vicryl in a figure-of- eight manner, the subcutaneous tissues were reapproximated in layers using #1 and 2-0 Vicryl sutures, and the skin was reapproximated with amirah. The area was then infiltrated with a mixture of a 0.25% Marcaine with Epinephrine and 1% plain lidocaine. Sterile dressing was then applied. No complication was encountered throughout the procedure. The patient tolerated the procedure well. The patient was taken to the recovery room in stable condition. Postoperative x -rays were obtained with the knee in unremarkable reduction of the fracture and well aligned Gamma nail. I did discuss with the family after the surgery. Postop instructions pain management, weightbearing as tolerated without any precautions with physical therapy. Regular wound check. Follow-up is advised.
[2017-05-20] MEDS: REMERON PO SCH (20:22)
[2017-05-20] MEDS: VISTARIL PO PRN (20:22)
[2017-05-20] MEDS: NEURONTIN CAP 300 MG PO SCH (20:23)
[2017-05-21] MEDS: NS + KCL 40 MEQ/L 1,000 ML IV SCH (00:42)
[2017-05-21] MEDS: PERCOCET TAB 5/325 MG PO PRN ×4 (00:43→20:33)
[2017-05-21 05:22] LABS: BASOPHILS # (AUTO) 0.1 X10^3/uL (0.0-0.1); BASOPHILS % (AUTO) 1.4 % (0.2-1.0); EOSINOPHILS # (AUTO) 0.9 x10^3/uL (0.0-0.2); EOSINOPHILS % (AUTO) 13.8 % (0.9-2.9); HEMATOCRIT 25.6 % (36.0-47.0); HEMOGLOBIN 8.8 g/dL (12.0-16.0); LYMPHOCYTES # (AUTO) 1.7 X10^3/uL (1.3-2.9); MEAN CORPUSCULAR HEMOGLOBIN 29.7 pg (27.0-34.0); MEAN CORPUSCULAR HGB CONC 34.2 g/dL (33.0-35.0); MEAN CORPUSCULAR VOLUME 86.9 fL (80.0-100.0); MEAN PLATELET VOLUME 7.8 fL (7.4-11.0); MONOCYTES # (AUTO) 0.5 x10^3/uL (0.3-0.8); MONOCYTES % (AUTO) 8.1 % (0.0-13.0); NEUTROPHILS # (AUTO) 3.2 x10^3/uL (2.2-4.8); NEUTROPHILS % (AUTO) 49.7 % (42.0-75.0); PLATELET COUNT 416 X10^3/uL (150.0-450.0); RED BLOOD COUNT 2.95 X10^6/uL (3.5-5.4); RED CELL DISTRIBUTION WIDTH 16.4 % (11.6-16.5); WHITE BLOOD COUNT 6.4 X10^3/uL (3.6-10.0)
[2017-05-21 05:32] LABS: ALANINE AMINOTRANSFERASE 34 Units/L (12-78); ALBUMIN 2.1 g/dL (3.4-5.0); ALKALINE PHOSPHATASE 216 Units/L (46-116); ASPARTATE AMINO TRANSFERASE 36 Units/L (15-37); BLOOD UREA NITROGEN 25 mg/dL (7-18); CALCIUM 8.1 mg/dL (8.5-10.1); CARBON DIOXIDE 28.7 mmol/L (21-32); CHLORIDE 105 mmol/L (98-107); COR CA(FOR HYPOALB) 9.6 mg/dL (8.5-10.1); CREATININE 0.84 mg/dL (0.55-1.02); SODIUM 138 mmol/L (136-145); TOTAL PROTEIN 5.5 g/dL (6.4-8.2); eGFR BLACK RACES > 60 (>60); eGFR NON BLACK RACES > 60 (>60)
[2017-05-21] MEDS: LOVENOX INJ 40 MG SYR SC SCH (09:15)
[2017-05-21] MEDS: TAB-A-VITE PO SCH (09:17)
[2017-05-21] MEDS: ASPIRIN 81 MG CHEWTAB PO SCH (09:17)
[2017-05-21] MEDS: BUSPAR PO SCH ×2 (09:17→20:33)
[2017-05-21] MEDS: VITAMIN C PO SCH (09:18)
[2017-05-21] MEDS: ZINC SULFATE PO SCH (09:18)
[2017-05-21] MEDS: ROCEPHIN VIAL 1 GM 1 GM in NS 100 ML IV + SPIKE MINIBAG* 100 ML IV SCH (09:19)
[2017-05-21] MEDS: NEURONTIN CAP 300 MG PO SCH (20:33)
[2017-05-21] MEDS: VISTARIL PO PRN (20:33)
[2017-05-21] MEDS: REMERON PO SCH (20:33)
[2017-05-22] MEDS: NS + KCL 40 MEQ/L 1,000 ML IV SCH ×2 (03:53→05:31)
[2017-05-22 06:03] LABS: BASOPHILS # (AUTO) 0.1 X10^3/uL (0.0-0.1); BASOPHILS % (AUTO) 1.5 % (0.2-1.0); EOSINOPHILS # (AUTO) 0.8 x10^3/uL (0.0-0.2); EOSINOPHILS % (AUTO) 9.8 % (0.9-2.9); HEMOGLOBIN 8.8 g/dL (12.0-16.0); LYMPHOCYTES # (AUTO) 1.4 X10^3/uL (1.3-2.9); LYMPHOCYTES % (AUTO) 18.2 % (21.0-51.0); MEAN CORPUSCULAR HEMOGLOBIN 29.5 pg (27.0-34.0); MEAN CORPUSCULAR VOLUME 86.7 fL (80.0-100.0); MEAN PLATELET VOLUME 7.7 fL (7.4-11.0); MONOCYTES # (AUTO) 0.5 x10^3/uL (0.3-0.8); MONOCYTES % (AUTO) 6.8 % (0.0-13.0); NEUTROPHILS # (AUTO) 4.9 x10^3/uL (2.2-4.8); NEUTROPHILS % (AUTO) 63.7 % (42.0-75.0); PLATELET COUNT 500 X10^3/uL (150.0-450.0); RED CELL DISTRIBUTION WIDTH 16.1 % (11.6-16.5); WHITE BLOOD COUNT 7.7 X10^3/uL (3.6-10.0)
[2017-05-22 06:13] LABS: ALANINE AMINOTRANSFERASE 52 Units/L (12-78); ALBUMIN 2.2 g/dL (3.4-5.0); ALKALINE PHOSPHATASE 299 Units/L (46-116); ASPARTATE AMINO TRANSFERASE 69 Units/L (15-37); BLOOD UREA NITROGEN 26 mg/dL (7-18); CALCIUM 8.3 mg/dL (8.5-10.1); CARBON DIOXIDE 25.2 mmol/L (21-32); CHLORIDE 106 mmol/L (98-107); COR CA(FOR HYPOALB) 9.7 mg/dL (8.5-10.1); CREATININE 0.94 mg/dL (0.55-1.02); SODIUM 140 mmol/L (136-145); TOTAL PROTEIN 5.9 g/dL (6.4-8.2); eGFR BLACK RACES > 60 (>60); eGFR NON BLACK RACES > 60 (>60)
[2017-05-22] MEDS: ZINC SULFATE PO SCH (07:59)
[2017-05-22] MEDS: TAB-A-VITE PO SCH (08:00)
[2017-05-22] MEDS: VITAMIN C PO SCH (08:00)
[2017-05-22] MEDS: BUSPAR PO SCH (08:00)
[2017-05-22] MEDS: ROCEPHIN VIAL 1 GM 1 GM in NS 100 ML IV + SPIKE MINIBAG* 100 ML IV SCH (08:00)
[2017-05-22] MEDS: ASPIRIN 81 MG CHEWTAB PO SCH (08:00)
[2017-05-22] MEDS: PERCOCET TAB 5/325 MG PO PRN (08:00)
[2017-05-22] MEDS: LOVENOX INJ 40 MG SYR SC SCH (09:47)
[2017-05-22 12:00] VITALS: BP 142/67
== END 2017-05-22 13:10 | disposition swing bed (61) | DRG 482 ==
LOC: ER 09:41 → MED/SURG 12:00
PROVIDERS: ADMIT Internal Medicine; ATTEND Internal Medicine
PROC: 0QS746Z Reposition Left Upper Femur with Intramedullary Internal Fixation Device, Percutaneous Endoscopic Approach (ICD-10-PCS; principal; 2017-05-16 09:00)
PROC: 30233N1 Transfusion of Nonautologous Red Blood Cells into Peripheral Vein, Percutaneous Approach (ICD-10-PCS; 2017-05-19)
DX: S72.142A Displaced intertrochanteric fracture of left femur, initial encounter for closed fracture (principal); M25.552 Pain in left hip; M79.662 Pain in left lower leg; W18.39XA Other fall on same level, initial encounter; Y92.89 Other specified places as the place of occurrence of the external cause; R94.31 Abnormal electrocardiogram [ECG] [EKG]; F41.1 Generalized anxiety disorder; B96.29 Other Escherichia coli [E. coli] as the cause of diseases classified elsewhere; R26.89 Other abnormalities of gait and mobility; D64.89 Other specified anemias
CPT/HCPCS: 36415; 36430; 51702; 62326; 71010; 72170; 73501; 73552; 73700; 76000; 80048; 80053; 81001; 83735; 85025; 85610; 85730; 86850; 86900; 86901; 86922; 87086; 87088; 87186; 93005; 93010; 94640; 94762; 96365; 96374; 96375; 97535; 99100; 99231; 99284; A4216; A4222; P9016; Q0177; S0020; J0170; J0690; J0696; J1650; J2001; J2250; J2270; J2370; J2405; J2795; J3490

== ENCOUNTER 2017-05-22 13:10 | Inpatient (IN) | payer OTHER ==
[2017-05-22] MEDS ORDERED: MILK OF MAGNESIA PO PRN (15:44)
[2017-05-22] MEDS ORDERED: COLACE CAP 100 MG PO PRN (15:44)
[2017-05-22] MEDS: BUSPAR PO SCH (21:24)
[2017-05-22] MEDS: NEURONTIN CAP 300 MG PO SCH (21:24)
[2017-05-22] MEDS: REMERON PO SCH (21:24)
[2017-05-22] MEDS: PERCOCET TAB 5/325 MG PO PRN (21:24)
[2017-05-23] MEDS: ZINC SULFATE PO SCH (10:57)
[2017-05-23] MEDS: ASPIRIN 81 MG CHEWTAB PO SCH (10:57)
[2017-05-23] MEDS: VITAMIN C PO SCH (10:58)
[2017-05-23] MEDS: TAB-A-VITE PO SCH (10:58)
[2017-05-23] MEDS: BUSPAR PO SCH ×2 (10:58→20:42)
[2017-05-23] MEDS: LOVENOX INJ 40 MG SYR SC SCH (10:58)
[2017-05-23] MEDS: ROCEPHIN VIAL 1 GM 1 GM in NS 100 ML IV + SPIKE MINIBAG* 100 ML IV SCH (10:59)
[2017-05-23] MEDS: REMERON PO SCH (20:42)
[2017-05-23] MEDS: PERCOCET TAB 5/325 MG PO PRN (20:42)
[2017-05-23] MEDS: NEURONTIN CAP 300 MG PO SCH (20:42)
[2017-05-24] MEDS: LOVENOX INJ 40 MG SYR SC SCH (09:22)
[2017-05-24] MEDS: TAB-A-VITE PO SCH (09:25)
[2017-05-24] MEDS: BUSPAR PO SCH ×2 (09:25→20:24)
[2017-05-24] MEDS: ASPIRIN 81 MG CHEWTAB PO SCH (09:25)
[2017-05-24] MEDS: ZINC SULFATE PO SCH (09:25)
[2017-05-24] MEDS: VITAMIN C PO SCH (09:25)
[2017-05-24] MEDS: ROCEPHIN VIAL 1 GM 1 GM in NS 100 ML IV + SPIKE MINIBAG* 100 ML IV SCH (09:25)
[2017-05-24] MEDS: VISTARIL PO PRN (20:24)
[2017-05-24] MEDS: NEURONTIN CAP 300 MG PO SCH (20:24)
[2017-05-24] MEDS: REMERON PO SCH (20:24)
[2017-05-24] MEDS: PERCOCET TAB 5/325 MG PO PRN (20:24)
[2017-05-25 06:34] LABS: BASOPHILS # (AUTO) 0.1 X10^3/uL (0.0-0.1); BASOPHILS % (AUTO) 2.2 % (0.2-1.0); EOSINOPHILS # (AUTO) 0.9 x10^3/uL (0.0-0.2); EOSINOPHILS % (AUTO) 13.9 % (0.9-2.9); HEMOGLOBIN 9.1 g/dL (12.0-16.0); LYMPHOCYTES # (AUTO) 1.4 X10^3/uL (1.3-2.9); LYMPHOCYTES % (AUTO) 23.1 % (21.0-51.0); MEAN CORPUSCULAR HEMOGLOBIN 29.7 pg (27.0-34.0); MEAN CORPUSCULAR HGB CONC 33.8 g/dL (33.0-35.0); MEAN PLATELET VOLUME 7.1 fL (7.4-11.0); MONOCYTES # (AUTO) 0.5 x10^3/uL (0.3-0.8); MONOCYTES % (AUTO) 8.1 % (0.0-13.0); NEUTROPHILS # (AUTO) 3.3 x10^3/uL (2.2-4.8); NEUTROPHILS % (AUTO) 52.7 % (42.0-75.0); PLATELET COUNT 620 X10^3/uL (150.0-450.0); RED BLOOD COUNT 3.07 X10^6/uL (3.5-5.4); WHITE BLOOD COUNT 6.2 X10^3/uL (3.6-10.0)
[2017-05-25 06:58] LABS: ALANINE AMINOTRANSFERASE 139 Units/L (12-78); ALBUMIN 2.4 g/dL (3.4-5.0); ALKALINE PHOSPHATASE 483 Units/L (46-116); ASPARTATE AMINO TRANSFERASE 123 Units/L (15-37); BLOOD UREA NITROGEN 25 mg/dL (7-18); CALCIUM 8.7 mg/dL (8.5-10.1); CARBON DIOXIDE 27.3 mmol/L (21-32); CHLORIDE 106 mmol/L (98-107); CREATININE 0.72 mg/dL (0.55-1.02); SODIUM 142 mmol/L (136-145); eGFR BLACK RACES > 60 (>60); eGFR NON BLACK RACES > 60 (>60)
[2017-05-25 07:24] LABS: PLATELET MORPHOLOGY COMMENT NORMAL (NORMAL)
[2017-05-25] MEDS: ASPIRIN 81 MG CHEWTAB PO SCH (09:48)
[2017-05-25] MEDS: LOVENOX INJ 40 MG SYR SC SCH (09:48)
[2017-05-25] MEDS: TAB-A-VITE PO SCH (09:48)
[2017-05-25] MEDS: ROCEPHIN VIAL 1 GM 1 GM in NS 100 ML IV + SPIKE MINIBAG* 100 ML IV SCH (09:48)
[2017-05-25] MEDS: VITAMIN C PO SCH (09:48)
[2017-05-25] MEDS: BUSPAR PO SCH ×2 (09:48→21:12)
[2017-05-25] MEDS: ZINC SULFATE PO SCH (09:48)
[2017-05-25] MEDS: NEURONTIN CAP 100 MG PO SCH (11:30)
[2017-05-25] MEDS: VISTARIL PO PRN (21:12)
[2017-05-25] MEDS: REMERON PO SCH (21:12)
[2017-05-25] MEDS: NEURONTIN CAP 300 MG PO SCH (21:12)
[2017-05-25] MEDS: PERCOCET TAB 5/325 MG PO PRN (21:13)
[2017-05-26] MEDS: VITAMIN C PO SCH (09:49)
[2017-05-26] MEDS: NEURONTIN CAP 100 MG PO SCH (09:49)
[2017-05-26] MEDS: ZINC SULFATE PO SCH (09:49)
[2017-05-26] MEDS: TAB-A-VITE PO SCH (09:49)
[2017-05-26] MEDS: BUSPAR PO SCH ×2 (09:49→20:20)
[2017-05-26] MEDS: ASPIRIN 81 MG CHEWTAB PO SCH (09:49)
[2017-05-26] MEDS: ROCEPHIN VIAL 1 GM 1 GM in NS 100 ML IV + SPIKE MINIBAG* 100 ML IV SCH (09:50)
[2017-05-26] MEDS: LOVENOX INJ 40 MG SYR SC SCH (09:50)
--- NOTE | 2017-05-26 15:49 | PCM.PROG ---
Progress Note - Progress Note for Day of Date: 05/25/17 - Subjective Subjective: IS STATUS POST LEFT HIP FX WITH REPAIR. SHE IS CURRENTLY SWINGBED STATUS FOR REHAB AND PHYSICAL THERAPY. TODAY, SHE IS ALERT AND ORIENTED, LYING IN BED ON MORNING ROUNDS. PATIENTS SON IS AT BEDSIDE. SHE IS NOTED WITH COMPLAINTS OF RIGHT HIP/LEG PAIN. LEFT HIP IS NOTED WITH A DRESSING, DRY AND INTACT. HEART IN REGULAR IN RATE AND RHYTHM. BILATERAL LUNGS ARE CLEAR TO AUSCULTATION. ABDOMEN IS ROUND, SOFT, AND NON-TENDER WITH NORMAL BOWEL SOUNDS NOTED IN ALL QUADRANTS. HER VITALS THIS MORNING ARE 97.0-82-18-97% -139/62. LABS WERE OBTAINED THIS MORNING. ABNORMAL LAB VALUES INCLUDE THE FOLLOWING: RBC 3.07, HGB 9.1, HCT 27.0, BUN 25, AST 123, ALT 139, ALK PHOS 483, TOTAL PROTEIN 6.0, ALBUMIN 2.4. PHYSICAL THERAPY CONTINUES TO WORK WITH AMBULATING PATIENT. PT REPORTS THAT PATIENT IS COOPERATIVE AND COMPLIANT WITH EXERCISES. TODAY, WE WILL ADD GABAPENTIN 100MG PO DAILY IN ADDITION TO THE 300MG THAT SHE ALREADY TAKES AT BEDTIME. OTHERWISE, WE WILL CONTINUE WITH CURRENT PLAN OF CARE. WE WILL CONTINUE TO MONITOR PATIENT. - Past Medical Family Social History Past Med/Fam/Surg Hx: No changes since H&P Allergies: Allergies nitrofurantoin [From Macrobid] Allergy (Verified 05/15/17 11:19) - Review of Systems ROS: No change since H&P - Vital Signs and I&O's Vital Signs: Temperature 97.5 F Pulse Rate [Right Brachial] 87 Respiratory Rate 20 Blood Pressure [Right Arm] 120/57 Blood Pressure [Left Arm] 118/59 Blood Pressure 142/67 O2 Sat by Pulse Oximetry 95 Intake and Output: Intake & Output 05/24/17 05/25/17 05/26/17 05/27/17 11:59 11:59 11:59 11:59 Intake Total 650 940 730 92 Balance 650 940 730 92 - Physical Exam Oriented: Normal Eyes: Normal Ear: Normal Nose: Normal Throat: Normal Respiratory: Normal Cardiovascular: Normal : Normal Auscultation: Bowel Sounds: Normal Palpation: Normal Tenderness: Normal Skin: Wound (SURGICAL WOUND TO LEFT HIP ), Bruising (LEFT HIP ) Musculoskeletal: Left, Hip, Tender, Instability Psychiatric: Normal Mood Description: Calm Affect: Normal Speech Pattern: Clear, Appropriate - Laboratory and Diagnostics Result Diagrams: 05/25/17 05:45 05/25/17 05:45 Labs: Laboratory WBC 6.2 X10^3/uL (3.6-10.0) 05/25/17 05:45 RBC 3.07 X10^6/uL (3.5-5.4) L 05/25/17 05:45 Hgb 9.1 g/dL (12.0-16.0) L 05/25/17 05:45 Hct 27.0 % (36.0-47.0) L 05/25/17 05:45 MCV 88.0 fL (80.0-100.0) 05/25/17 05:45 MCH 29.7 pg (27.0-34.0) 05/25/17 05:45 MCHC 33.8 g/dL (33.0-35.0) 05/25/17 05:45 RDW 17.0 % (11.6-16.5) H 05/25/17 05:45 Plt Count 620 X10^3/uL (150.0-450.0) H 05/25/17 05:45 Plt Count Comment Increased (ADEQUATE) A 05/25/17 05:45 MPV 7.1 fL (7.4-11.0) L 05/25/17 05:45 Neut % 52.7 % (42.0-75.0) 05/25/17 05:45 Lymph % 23.1 % (21.0-51.0) 05/25/17 05:45 [place] % 8.1 % (0.0-13.0) 05/25/17 05:45 Eos % 13.9 % (0.9-2.9) H 05/25/17 05:45 Baso % 2.2 % (0.2-1.0) H 05/25/17 05:45 Neut # 3.3 x10^3/uL (2.2-4.8) 05/25/17 05:45 Lymph # 1.4 X10^3/uL (1.3-2.9) 05/25/17 05:45 [place] # 0.5 x10^3/uL (0.3-0.8) 05/25/17 05:45 Eos # 0.9 x10^3/uL (0.0-0.2) H 05/25/17 05:45 Baso # 0.1 X10^3/uL (0.0-0.1) 05/25/17 05:45 Absolute Nucleated RBC 0.1 /100WBC 05/25/17 05:45 Plt Morphology Comment Normal (NORMAL) 05/25/17 05:45 RBC Morphology Normal (NORMAL) 05/25/17 05:45 Sodium 142 mmol/L (136-145) 05/25/17 05:45 Corrected Sodium TNP 05/25/17 05:45 Potassium 4.3 mmol/L (3.5-5.1) 05/25/17 05:45 Chloride 106 mmol/L (98-107) 05/25/17 05:45 Carbon Dioxide 27.3 mmol/L (21-32) 05/25/17 05:45 BUN 25 mg/dL (7-18) H 05/25/17 05:45 Creatinine 0.72 mg/dL (0.55-1.02) 05/25/17 05:45 Est GFR (MDRD) Af Amer > 60 (>60) 05/25/17 05:45 Est GFR (MDRD) Non-Af > 60 (>60) 05/25/17 05:45 Glucose 87 mg/dL (65-99) 05/25/17 05:45 Calcium 8.7 mg/dL (8.5-10.1) 05/25/17 05:45 Corrected Calcium 10.0 mg/dL (8.5-10.1) 05/25/17 05:45 Total Bilirubin 0.30 mg/dL (0.2-1.0) 05/25/17 05:45 AST 123 Units/L (15-37) H 05/25/17 05:45 ALT 139 Units/L (12-78) H 05/25/17 05:45 Alkaline Phosphatase 483 Units/L (46-116) H 05/25/17 05:45 Total Protein 6.0 g/dL (6.4-8.2) L 05/25/17 05:45 Albumin 2.4 g/dL (3.4-5.0) L 05/25/17 05:45 Globulin 3.6 g/dL (2.5-4.5) 05/25/17 05:45 Albumin/Globulin Ratio 0.7 Ratio (1.1-2.1) L 05/25/17 05:45 - Plan (1) Status post-operative repair of closed hip fracture Status: Acute Plan: PHYSICAL THERAPY, WOUND CARE, CONTINUE TO MONITOR
[2017-05-26] MEDS: NEURONTIN CAP 300 MG PO SCH (20:20)
[2017-05-26] MEDS: REMERON PO SCH (20:20)
[2017-05-27] MEDS: LOVENOX INJ 40 MG SYR SC SCH (08:26)
[2017-05-27] MEDS: ZINC SULFATE PO SCH (08:26)
[2017-05-27] MEDS: ROCEPHIN VIAL 1 GM 1 GM in NS 100 ML IV + SPIKE MINIBAG* 100 ML IV SCH (08:26)
[2017-05-27] MEDS: NEURONTIN CAP 100 MG PO SCH (08:27)
[2017-05-27] MEDS: TAB-A-VITE PO SCH (08:27)
[2017-05-27] MEDS: BUSPAR PO SCH ×2 (08:27→21:02)
[2017-05-27] MEDS: VITAMIN C PO SCH (08:27)
[2017-05-27] MEDS: ASPIRIN 81 MG CHEWTAB PO SCH (08:27)
[2017-05-27] MEDS: PERCOCET TAB 5/325 MG PO PRN (17:20)
[2017-05-27] MEDS: REMERON PO SCH (21:02)
[2017-05-27] MEDS: NEURONTIN CAP 300 MG PO SCH (21:02)
[2017-05-28] MEDS: PERCOCET TAB 5/325 MG PO PRN ×2 (02:17→14:44)
[2017-05-28 06:14] LABS: BASOPHILS # (AUTO) 0.1 X10^3/uL (0.0-0.1); BASOPHILS % (AUTO) 2.2 % (0.2-1.0); EOSINOPHILS # (AUTO) 0.7 x10^3/uL (0.0-0.2); HEMATOCRIT 26.6 % (36.0-47.0); HEMOGLOBIN 9.1 g/dL (12.0-16.0); LYMPHOCYTES # (AUTO) 1.6 X10^3/uL (1.3-2.9); LYMPHOCYTES % (AUTO) 23.2 % (21.0-51.0); MEAN CORPUSCULAR HEMOGLOBIN 30.2 pg (27.0-34.0); MEAN CORPUSCULAR HGB CONC 34.1 g/dL (33.0-35.0); MEAN CORPUSCULAR VOLUME 88.4 fL (80.0-100.0); MEAN PLATELET VOLUME 7.3 fL (7.4-11.0); MONOCYTES # (AUTO) 0.5 x10^3/uL (0.3-0.8); NEUTROPHILS # (AUTO) 3.8 x10^3/uL (2.2-4.8); NEUTROPHILS % (AUTO) 55.6 % (42.0-75.0); PLATELET COUNT 634 X10^3/uL (150.0-450.0); RED CELL DISTRIBUTION WIDTH 18.1 % (11.6-16.5); WHITE BLOOD COUNT 6.8 X10^3/uL (3.6-10.0)
[2017-05-28 06:46] LABS: ALANINE AMINOTRANSFERASE 81 Units/L (12-78); ALBUMIN 2.5 g/dL (3.4-5.0); ALKALINE PHOSPHATASE 390 Units/L (46-116); ASPARTATE AMINO TRANSFERASE 52 Units/L (15-37); BLOOD UREA NITROGEN 28 mg/dL (7-18); CALCIUM 8.7 mg/dL (8.5-10.1); CARBON DIOXIDE 27.8 mmol/L (21-32); CHLORIDE 107 mmol/L (98-107); COR CA(FOR HYPOALB) 9.9 mg/dL (8.5-10.1); CREATININE 0.74 mg/dL (0.55-1.02); SODIUM 144 mmol/L (136-145); eGFR BLACK RACES > 60 (>60); eGFR NON BLACK RACES > 60 (>60)
[2017-05-28 06:52] LABS: PLATELET MORPHOLOGY COMMENT NORMAL (NORMAL)
[2017-05-28] MEDS: NEURONTIN CAP 100 MG PO SCH (08:28)
[2017-05-28] MEDS: ASPIRIN 81 MG CHEWTAB PO SCH (08:28)
[2017-05-28] MEDS: TAB-A-VITE PO SCH (08:29)
[2017-05-28] MEDS: VITAMIN C PO SCH (08:29)
[2017-05-28] MEDS: ROCEPHIN VIAL 1 GM 1 GM in NS 100 ML IV + SPIKE MINIBAG* 100 ML IV SCH (08:29)
[2017-05-28] MEDS: BUSPAR PO SCH ×2 (08:29→21:51)
[2017-05-28] MEDS: LOVENOX INJ 40 MG SYR SC SCH (08:29)
[2017-05-28] MEDS: ZINC SULFATE PO SCH (08:29)
--- NOTE | 2017-05-28 21:08 | PCM.PROG ---
Progress Note - Progress Note for Day of Date: 05/28/17 - Subjective Subjective: IS STATUS POST LEFT HIP FX WITH REPAIR. SHE IS CURRENTLY SWINGBED STATUS FOR REHAB AND PHYSICAL THERAPY. TODAY, SHE IS ALERT AND ORIENTED, SITTING UP IN RECLINER ON MORNING ROUNDS. PATIENTS DAUGHTER REPORTS THAT SHE HAS BEEN SOMEWHAT CONFUSED THROUGHOUT THE NIGHT, HOWEVER, PATIENT ANSWERS ALL QUESTIONS APPROPRIATELY AT THIS TIME. SHE REPORTS FEELING WELL TODAY AND DENIES PAIN AT THIS TIME. LEFT HIP IS NOTED WITH A DRESSING, DRY AND INTACT. HEART IS REGULAR IN RATE AND RHYTHM. BILATERAL LUNGS ARE CLEAR TO AUSCULTATION. ABDOMEN IS ROUND, SOFT, AND NON-TENDER WITH NORMAL BOWEL SOUNDS NOTED IN ALL QUADRANTS. HER VITALS THIS MORNING ARE 98.6-84-18-96%-129/66. LABS WERE OBTAINED THIS MORNING. ABNORMAL LAB VALUES INCLUDE THE FOLLOWING: RBC 3.00 , HGB 9.1, HCT 26.6, PLT COUNT 634, BUN 28, AST 51, ALT 81, ALK PHOS 390, TOTAL PROTEIN 6.0, ALBUMIN 2.5. PATIENT CONTINUES TO COOPERATE WITH PHYSICAL THERAPY. PATIENT IS ABLE TO AMBULATE WITH MINIMAL ASSISTANCE WITH FAIR BALANCE. WE WILL CONTINUE WITH CURRENT PLAN OF CARE TODAY AND CONTINUE TO MONITOR PATIENT. - Past Medical Family Social History Past Med/Fam/Surg Hx: No changes since H&P Allergies: Allergies nitrofurantoin [From Macrobid] Allergy (Verified 05/15/17 11:19) - Review of Systems ROS: No change since H&P - Vital Signs and I&O's Vital Signs: Temperature 98.3 F Pulse Rate [Right Brachial] 83 Respiratory Rate 18 Blood Pressure [Right Arm] 132/69 Blood Pressure [Left Arm] 118/59 Blood Pressure 142/67 O2 Sat by Pulse Oximetry 97 Intake and Output: Intake & Output 05/26/17 05/27/17 05/28/17 05/29/17 11:59 11:59 11:59 11:59 Intake Total 730 542 591 610 Balance 730 542 591 610 - Physical Exam Oriented: Normal Eyes: Normal Ear: Normal Nose: Normal Throat: Normal Respiratory: Normal Cardiovascular: Normal : Normal Auscultation: Bowel Sounds: Normal Palpation: Normal Tenderness: Normal Skin: Wound (SURGICAL WOUND TO LEFT HIP ), Bruising (LEFT HIP ) Musculoskeletal: Left, Hip, Tender, Instability Psychiatric: Normal Mood Description: Calm Affect: Normal Speech Pattern: Clear, Appropriate - Laboratory and Diagnostics Result Diagrams: 05/28/17 05:20 05/28/17 05:20 Labs: Laboratory WBC 6.8 X10^3/uL (3.6-10.0) 05/28/17 05:20 RBC 3.00 X10^6/uL (3.5-5.4) L 05/28/17 05:20 Hgb 9.1 g/dL (12.0-16.0) L 05/28/17 05:20 Hct 26.6 % (36.0-47.0) L 05/28/17 05:20 MCV 88.4 fL (80.0-100.0) 05/28/17 05:20 MCH 30.2 pg (27.0-34.0) 05/28/17 05:20 MCHC 34.1 g/dL (33.0-35.0) 05/28/17 05:20 RDW 18.1 % (11.6-16.5) H 05/28/17 05:20 Plt Count 634 X10^3/uL (150.0-450.0) H 05/28/17 05:20 Plt Count Comment Increased (ADEQUATE) A 05/28/17 05:20 MPV 7.3 fL (7.4-11.0) L 05/28/17 05:20 Neut % 55.6 % (42.0-75.0) 05/28/17 05:20 Lymph % 23.2 % (21.0-51.0) 05/28/17 05:20 [place] % 8.0 % (0.0-13.0) 05/28/17 05:20 Eos % 11.0 % (0.9-2.9) H 05/28/17 05:20 Baso % 2.2 % (0.2-1.0) H 05/28/17 05:20 Neut # 3.8 x10^3/uL (2.2-4.8) 05/28/17 05:20 Lymph # 1.6 X10^3/uL (1.3-2.9) 05/28/17 05:20 [place] # 0.5 x10^3/uL (0.3-0.8) 05/28/17 05:20 Eos # 0.7 x10^3/uL (0.0-0.2) H 05/28/17 05:20 Baso # 0.1 X10^3/uL (0.0-0.1) 05/28/17 05:20 Absolute Nucleated RBC 0.1 /100WBC 05/28/17 05:20 Plt Morphology Comment Normal (NORMAL) 05/28/17 05:20 RBC Morphology Normal (NORMAL) 05/28/17 05:20 Sodium 144 mmol/L (136-145) 05/28/17 05:20 Corrected Sodium TNP 05/28/17 05:20 Potassium 3.9 mmol/L (3.5-5.1) 05/28/17 05:20 Chloride 107 mmol/L (98-107) 05/28/17 05:20 Carbon Dioxide 27.8 mmol/L (21-32) 05/28/17 05:20 BUN 28 mg/dL (7-18) H 05/28/17 05:20 Creatinine 0.74 mg/dL (0.55-1.02) 05/28/17 05:20 Est GFR (MDRD) Af Amer > 60 (>60) 05/28/17 05:20 Est GFR (MDRD) Non-Af > 60 (>60) 05/28/17 05:20 Glucose 89 mg/dL (65-99) 05/28/17 05:20 Calcium 8.7 mg/dL (8.5-10.1) 05/28/17 05:20 Corrected Calcium 9.9 mg/dL (8.5-10.1) 05/28/17 05:20 Total Bilirubin 0.20 mg/dL (0.2-1.0) 05/28/17 05:20 AST 52 Units/L (15-37) H 05/28/17 05:20 ALT 81 Units/L (12-78) H 05/28/17 05:20 Alkaline Phosphatase 390 Units/L (46-116) H 05/28/17 05:20 Total Protein 6.0 g/dL (6.4-8.2) L 05/28/17 05:20 Albumin 2.5 g/dL (3.4-5.0) L 05/28/17 05:20 Globulin 3.5 g/dL (2.5-4.5) 05/28/17 05:20 Albumin/Globulin Ratio 0.7 Ratio (1.1-2.1) L 05/28/17 05:20 - Plan (1) Status post-operative repair of closed hip fracture Status: Acute Plan: PHYSICAL THERAPY, WOUND CARE, CONTINUE TO MONITOR
[2017-05-28] MEDS: REMERON PO SCH (21:50)
[2017-05-28] MEDS: VISTARIL PO PRN (21:50)
[2017-05-28] MEDS: NEURONTIN CAP 300 MG PO SCH (21:50)
[2017-05-29] MEDS ORDERED: ROCEPHIN VIAL 1 GM ONE (09:33)
[2017-05-29] MEDS ORDERED: NS 100 ML IV 100 ML IV ONE (09:33)
[2017-05-29] MEDS: TAB-A-VITE PO SCH (09:43)
[2017-05-29] MEDS: BUSPAR PO SCH ×2 (09:43→21:32)
[2017-05-29] MEDS: LOVENOX INJ 40 MG SYR SC SCH (09:44)
[2017-05-29] MEDS: ASPIRIN 81 MG CHEWTAB PO SCH (09:44)
[2017-05-29] MEDS: VITAMIN C PO SCH (09:44)
[2017-05-29] MEDS: ZINC SULFATE PO SCH (09:44)
[2017-05-29] MEDS: NEURONTIN CAP 100 MG PO SCH (09:44)
[2017-05-29] MEDS: ROCEPHIN VIAL 1 GM 1 GM in NS 100 ML IV 100 ML IV SCH (09:45)
[2017-05-29] MEDS ORDERED: NS 250 ML IV 250 ML IV ONE (09:51)
[2017-05-29] MEDS: NEURONTIN CAP 300 MG PO SCH (21:31)
[2017-05-29] MEDS: REMERON PO SCH (21:32)
[2017-05-29] MEDS: PERCOCET TAB 5/325 MG PO PRN (21:33)
[2017-05-29] MEDS: VISTARIL PO PRN (21:34)
[2017-05-30] MEDS: PERCOCET TAB 5/325 MG PO PRN ×3 (05:58→23:19)
[2017-05-30] MEDS: TAB-A-VITE PO SCH (09:10)
[2017-05-30] MEDS: ASPIRIN 81 MG CHEWTAB PO SCH (09:10)
[2017-05-30] MEDS: ZINC SULFATE PO SCH (09:10)
[2017-05-30] MEDS: NEURONTIN CAP 100 MG PO SCH (09:11)
[2017-05-30] MEDS: BUSPAR PO SCH ×2 (09:11→21:13)
[2017-05-30] MEDS: ROCEPHIN VIAL 1 GM 1 GM in NS 100 ML IV 100 ML IV SCH (09:11)
[2017-05-30] MEDS: VITAMIN C PO SCH (09:11)
[2017-05-30] MEDS: LOVENOX INJ 40 MG SYR SC SCH (09:12)
[2017-05-30] MEDS: VISTARIL PO PRN (21:14)
[2017-05-30] MEDS: REMERON PO SCH (21:14)
[2017-05-30] MEDS: NEURONTIN CAP 300 MG PO SCH (21:14)
[2017-05-31 06:13] LABS: BASOPHILS # (AUTO) 0.1 X10^3/uL (0.0-0.1); BASOPHILS % (AUTO) 2.6 % (0.2-1.0); EOSINOPHILS # (AUTO) 0.6 x10^3/uL (0.0-0.2); EOSINOPHILS % (AUTO) 11.8 % (0.9-2.9); HEMATOCRIT 28.7 % (36.0-47.0); HEMOGLOBIN 9.8 g/dL (12.0-16.0); LYMPHOCYTES # (AUTO) 1.5 X10^3/uL (1.3-2.9); LYMPHOCYTES % (AUTO) 29.1 % (21.0-51.0); MEAN CORPUSCULAR HEMOGLOBIN 30.2 pg (27.0-34.0); MEAN CORPUSCULAR HGB CONC 33.9 g/dL (33.0-35.0); MEAN CORPUSCULAR VOLUME 89.1 fL (80.0-100.0); MEAN PLATELET VOLUME 7.5 fL (7.4-11.0); MONOCYTES # (AUTO) 0.4 x10^3/uL (0.3-0.8); MONOCYTES % (AUTO) 7.5 % (0.0-13.0); NEUTROPHILS # (AUTO) 2.6 x10^3/uL (2.2-4.8); PLATELET COUNT 609 X10^3/uL (150.0-450.0); RED BLOOD COUNT 3.22 X10^6/uL (3.5-5.4); RED CELL DISTRIBUTION WIDTH 17.8 % (11.6-16.5); WHITE BLOOD COUNT 5.2 X10^3/uL (3.6-10.0)
[2017-05-31] MEDS: NEURONTIN CAP 300 MG PO SCH ×3 (06:18→22:30)
[2017-05-31 06:24] LABS: ALANINE AMINOTRANSFERASE 63 Units/L (12-78); ALBUMIN 2.6 g/dL (3.4-5.0); ALKALINE PHOSPHATASE 347 Units/L (46-116); ASPARTATE AMINO TRANSFERASE 44 Units/L (15-37); BLOOD UREA NITROGEN 25 mg/dL (7-18); CALCIUM 8.6 mg/dL (8.5-10.1); CARBON DIOXIDE 28.9 mmol/L (21-32); CHLORIDE 106 mmol/L (98-107); COR CA(FOR HYPOALB) 9.7 mg/dL (8.5-10.1); CREATININE 0.68 mg/dL (0.55-1.02); SODIUM 141 mmol/L (136-145); TOTAL PROTEIN 6.1 g/dL (6.4-8.2); eGFR BLACK RACES > 60 (>60); eGFR NON BLACK RACES > 60 (>60)
[2017-05-31 06:54] LABS: HYPOCHROMASIA SLIGHT; MICROCYTOSIS SLIGHT; PLATELET MORPHOLOGY COMMENT NORMAL (NORMAL)
[2017-05-31 06:55] LABS: TARGET CELLS SLIGHT
[2017-05-31] MEDS: ROCEPHIN VIAL 1 GM 1 GM in NS 100 ML IV 100 ML IV SCH (08:26)
[2017-05-31] MEDS: ASPIRIN 81 MG CHEWTAB PO SCH (08:27)
[2017-05-31] MEDS: BUSPAR PO SCH ×2 (08:27→20:44)
[2017-05-31] MEDS: LOVENOX INJ 40 MG SYR SC SCH (08:28)
[2017-05-31] MEDS: TAB-A-VITE PO SCH (08:28)
[2017-05-31] MEDS: VITAMIN C PO SCH (08:28)
[2017-05-31] MEDS: ZINC SULFATE PO SCH (08:30)
[2017-05-31 10:14] VITALS: BMI 24.7
--- NOTE | 2017-05-31 13:50 | PCM.PROG ---
Progress Note - Progress Note for Day of Date: 05/31/17 - Subjective Subjective: IS STATUS POST LEFT HIP FX WITH REPAIR FOLLOWING A FALL. SHE IS CURRENTLY SWINGBED STATUS FOR REHAB AND PHYSICAL THERAPY. TODAY, SHE IS ALERT AND ORIENTED, SITTING UP IN BED ON MORNING ROUNDS. YESTERDAY, PATIENT COMPLAINED OF CONSTANT BURNING TO BILATERAL LEGS. WE INCREASED GABAPENTIN TO 300MG TID. TODAY, SHE REPORTS THAT PAIN AND BURNING SENSATION TO LEGS HAS IMPROVED SINCE YESTERDAY. LEFT HIP IS NOTED WITH A DRESSING, DRY AND INTACT. HEART IS REGULAR IN RATE AND RHYTHM. BILATERAL LUNGS ARE CLEAR TO AUSCULTATION. ABDOMEN IS ROUND, SOFT, AND NON-TENDER WITH NORMAL BOWEL SOUNDS NOTED IN ALL QUADRANTS. HER VITALS THIS MORNING ARE 98.4-80-22-95%-141/64. LABS WERE OBTAINED THIS MORNING. ABNORMAL LAB VALUES INCLUDE THE FOLLOWING: RBC 3.22 , HGB 9.8, HCT 28.7, BUN 25, AST 44, ALK PHOS 347, TOTAL PROTEIN 6.1, ALBUMIN 2.6. PHYSICAL THERAPY CONTINUES TO ASSIST PATIENT WITH AMBULATION. SHE IS AMBULATING WITH ASSISTANCE AND WALKER. TODAY, WE WILL CONTINUE WITH CURRENT PLAN OF CARE. WE WILL CONTINUE TO MONITOR LABS AND FOLLOW UP WITH PATIENT. - Past Medical Family Social History Past Med/Fam/Surg Hx: No changes since H&P Allergies: Allergies nitrofurantoin [From Macrobid] Allergy (Verified 05/15/17 11:19) - Review of Systems ROS: No change since H&P - Vital Signs and I&O's Vital Signs: Temperature 97.9 F Pulse Rate [Right Brachial] 76 Respiratory Rate 20 Blood Pressure [Right Arm] 143/65 Blood Pressure [Left Arm] 118/59 Blood Pressure 142/67 O2 Sat by Pulse Oximetry 92 Intake and Output: Intake & Output 05/29/17 05/30/17 05/31/17 06/01/17 11:59 11:59 11:59 11:59 Intake Total 610 1270 1070 Balance 610 1270 1070 - Physical Exam Oriented: Normal Eyes: Normal Ear: Normal Nose: Normal Throat: Normal Respiratory: Normal Cardiovascular: Normal : Normal Auscultation: Bowel Sounds: Normal Palpation: Normal Tenderness: Normal Skin: Wound (SURGICAL WOUND TO LEFT HIP ), Bruising (LEFT HIP ) Musculoskeletal: Left, Hip, Tender, Instability Psychiatric: Normal Mood Description: Calm Affect: Normal Speech Pattern: Clear, Appropriate - Laboratory and Diagnostics Result Diagrams: 05/31/17 05:25 05/31/17 05:25 Labs: Laboratory WBC 5.2 X10^3/uL (3.6-10.0) 05/31/17 05:25 RBC 3.22 X10^6/uL (3.5-5.4) L 05/31/17 05:25 Hgb 9.8 g/dL (12.0-16.0) L 05/31/17 05:25 Hct 28.7 % (36.0-47.0) L 05/31/17 05:25 MCV 89.1 fL (80.0-100.0) 05/31/17 05:25 MCH 30.2 pg (27.0-34.0) 05/31/17 05:25 MCHC 33.9 g/dL (33.0-35.0) 05/31/17 05:25 RDW 17.8 % (11.6-16.5) H 05/31/17 05:25 Plt Count 609 X10^3/uL (150.0-450.0) H 05/31/17 05:25 Plt Count Comment Increased (ADEQUATE) A 05/31/17 05:25 MPV 7.5 fL (7.4-11.0) 05/31/17 05:25 Neut % 49.0 % (42.0-75.0) 05/31/17 05:25 Lymph % 29.1 % (21.0-51.0) 05/31/17 05:25 [place] % 7.5 % (0.0-13.0) 05/31/17 05:25 Eos % 11.8 % (0.9-2.9) H 05/31/17 05:25 Baso % 2.6 % (0.2-1.0) H 05/31/17 05:25 Neut # 2.6 x10^3/uL (2.2-4.8) 05/31/17 05:25 Lymph # 1.5 X10^3/uL (1.3-2.9) 05/31/17 05:25 [place] # 0.4 x10^3/uL (0.3-0.8) 05/31/17 05:25 Eos # 0.6 x10^3/uL (0.0-0.2) H 05/31/17 05:25 Baso # 0.1 X10^3/uL (0.0-0.1) 05/31/17 05:25 Absolute Nucleated RBC 0.0 /100WBC 05/31/17 05:25 Plt Morphology Comment Normal (NORMAL) 05/31/17 05:25 RBC Morphology Abnormal (NORMAL) A 05/31/17 05:25 Hypochromasia Slight A 05/31/17 05:25 Microcytosis Slight A 05/31/17 05:25 Target Cells Slight A 05/31/17 05:25 Sodium 141 mmol/L (136-145) 05/31/17 05:25 Corrected Sodium TNP 05/31/17 05:25 Potassium 4.0 mmol/L (3.5-5.1) 05/31/17 05:25 Chloride 106 mmol/L (98-107) 05/31/17 05:25 Carbon Dioxide 28.9 mmol/L (21-32) 05/31/17 05:25 BUN 25 mg/dL (7-18) H 05/31/17 05:25 Creatinine 0.68 mg/dL (0.55-1.02) 05/31/17 05:25 Est GFR (MDRD) Af Amer > 60 (>60) 05/31/17 05:25 Est GFR (MDRD) Non-Af > 60 (>60) 05/31/17 05:25 Glucose 86 mg/dL (65-99) 05/31/17 05:25 Calcium 8.6 mg/dL (8.5-10.1) 05/31/17 05:25 Corrected Calcium 9.7 mg/dL (8.5-10.1) 05/31/17 05:25 Total Bilirubin 0.20 mg/dL (0.2-1.0) 05/31/17 05:25 AST 44 Units/L (15-37) H 05/31/17 05:25 ALT 63 Units/L (12-78) 05/31/17 05:25 Alkaline Phosphatase 347 Units/L (46-116) H 05/31/17 05:25 Total Protein 6.1 g/dL (6.4-8.2) L 05/31/17 05:25 Albumin 2.6 g/dL (3.4-5.0) L 05/31/17 05:25 Globulin 3.5 g/dL (2.5-4.5) 05/31/17 05:25 Albumin/Globulin Ratio 0.7 Ratio (1.1-2.1) L 05/31/17 05:25 - Plan (1) Status post-operative repair of closed hip fracture Status: Acute Plan: PHYSICAL THERAPY, WOUND CARE, CONTINUE TO MONITOR
[2017-05-31 15:25] LABS: BILIRUBIN,URINE NEGATIVE (NEGATIVE); BLOOD/HEMOGLOBIN,URINE 1+ (NEGATIVE); GLUCOSE, URINE NEGATIVE (NEGATIVE); KETONES,URINE NEGATIVE (NEGATIVE); LEUKOCYTE ESTERASE ,URINE 2+ (NEGATIVE); NITRITES,URINE NEGATIVE (NEGATIVE); PH,URINE 6.5 (5.0 - 8.0); PROTEIN,URINE NEGATIVE (NEGATIVE); UROBILINOGEN,URINE NORMAL (NORMAL)
[2017-05-31 15:30] LABS: APPEARANCE,URINE HAZY (CLEAR); BACTERIA,URINE TRACE /HPF (NEGATIVE); COLOR,URINE YELLOW (YELLOW); RBC,URINE 0-2 /HPF (NEGATIVE); SQUAMOUS EPITHELIAL CELL,UR RARE /HPF (NEGATIVE)
[2017-05-31] MEDS: PERCOCET TAB 5/325 MG PO PRN (20:43)
[2017-05-31] MEDS: VISTARIL PO PRN (20:43)
[2017-05-31] MEDS: REMERON PO SCH (20:44)
[2017-06-01] MEDS: NEURONTIN CAP 300 MG PO SCH ×3 (06:22→21:46)
[2017-06-01] MEDS: ASPIRIN 81 MG CHEWTAB PO SCH (08:30)
[2017-06-01] MEDS: TAB-A-VITE PO SCH (08:30)
[2017-06-01] MEDS: BUSPAR PO SCH ×2 (08:30→20:23)
[2017-06-01] MEDS: VITAMIN C PO SCH (08:30)
[2017-06-01] MEDS: LOVENOX INJ 40 MG SYR SC SCH (08:34)
[2017-06-01] MEDS: ZINC SULFATE PO SCH (08:35)
[2017-06-01] MEDS: ROCEPHIN VIAL 1 GM 1 GM in NS 100 ML IV 100 ML IV SCH (08:35)
[2017-06-01] MEDS: PERCOCET TAB 5/325 MG PO PRN ×3 (10:19→20:23)
[2017-06-01] MEDS: REMERON PO SCH (20:23)
[2017-06-01] MEDS: VISTARIL PO PRN (20:23)
[2017-06-02] MEDS: NEURONTIN CAP 300 MG PO SCH ×3 (05:23→21:26)
[2017-06-02] MEDS: ROCEPHIN VIAL 1 GM 1 GM in NS 100 ML IV 100 ML IV SCH (09:49)
[2017-06-02] MEDS: TAB-A-VITE PO SCH (09:50)
[2017-06-02] MEDS: BUSPAR PO SCH ×2 (09:50→21:26)
[2017-06-02] MEDS: VITAMIN C PO SCH (09:50)
[2017-06-02] MEDS: ASPIRIN 81 MG CHEWTAB PO SCH (09:50)
[2017-06-02] MEDS: LOVENOX INJ 40 MG SYR SC SCH (09:51)
[2017-06-02] MEDS: ZINC SULFATE PO SCH (12:18)
[2017-06-02] MEDS: PERCOCET TAB 5/325 MG PO PRN (19:38)
[2017-06-02] MEDS: REMERON PO SCH (21:26)
[2017-06-03] MEDS: NEURONTIN CAP 300 MG PO SCH ×3 (05:15→21:07)
[2017-06-03 06:14] LABS: BASOPHILS # (AUTO) 0.1 X10^3/uL (0.0-0.1); BASOPHILS % (AUTO) 1.3 % (0.2-1.0); EOSINOPHILS # (AUTO) 0.6 x10^3/uL (0.0-0.2); EOSINOPHILS % (AUTO) 12.5 % (0.9-2.9); HEMATOCRIT 29.2 % (36.0-47.0); HEMOGLOBIN 9.6 g/dL (12.0-16.0); LYMPHOCYTES # (AUTO) 1.6 X10^3/uL (1.3-2.9); LYMPHOCYTES % (AUTO) 30.5 % (21.0-51.0); MEAN CORPUSCULAR HEMOGLOBIN 29.4 pg (27.0-34.0); MEAN CORPUSCULAR HGB CONC 32.7 g/dL (33.0-35.0); MEAN CORPUSCULAR VOLUME 89.8 fL (80.0-100.0); MEAN PLATELET VOLUME 7.7 fL (7.4-11.0); MONOCYTES # (AUTO) 0.5 x10^3/uL (0.3-0.8); MONOCYTES % (AUTO) 9.4 % (0.0-13.0); NEUTROPHILS # (AUTO) 2.4 x10^3/uL (2.2-4.8); NEUTROPHILS % (AUTO) 46.3 % (42.0-75.0); PLATELET COUNT 496 X10^3/uL (150.0-450.0); RED BLOOD COUNT 3.25 X10^6/uL (3.5-5.4); RED CELL DISTRIBUTION WIDTH 17.4 % (11.6-16.5); WHITE BLOOD COUNT 5.2 X10^3/uL (3.6-10.0)
[2017-06-03 06:55] LABS: ALANINE AMINOTRANSFERASE 66 Units/L (12-78); ALBUMIN 2.7 g/dL (3.4-5.0); ALKALINE PHOSPHATASE 329 Units/L (46-116); ASPARTATE AMINO TRANSFERASE 47 Units/L (15-37); BLOOD UREA NITROGEN 25 mg/dL (7-18); CALCIUM 8.9 mg/dL (8.5-10.1); CARBON DIOXIDE 29.2 mmol/L (21-32); CHLORIDE 105 mmol/L (98-107); COR CA(FOR HYPOALB) 9.9 mg/dL (8.5-10.1); CREATININE 0.65 mg/dL (0.55-1.02); SODIUM 142 mmol/L (136-145); eGFR BLACK RACES > 60 (>60); eGFR NON BLACK RACES > 60 (>60)
[2017-06-03] MEDS: BUSPAR PO SCH ×2 (08:28→20:33)
[2017-06-03] MEDS: TAB-A-VITE PO SCH (08:28)
[2017-06-03] MEDS: ASPIRIN 81 MG CHEWTAB PO SCH (08:28)
[2017-06-03] MEDS: LOVENOX INJ 40 MG SYR SC SCH (08:29)
[2017-06-03] MEDS: ZINC SULFATE PO SCH (08:29)
[2017-06-03] MEDS: VITAMIN C PO SCH (08:29)
[2017-06-03] MEDS ORDERED: NS 100 ML IV + SPIKE MINIBAG* 100 ML IV ONE (08:39)
[2017-06-03] MEDS: ROCEPHIN VIAL 1 GM 1 GM in NS 100 ML IV 100 ML IV SCH (08:39)
--- NOTE | 2017-06-03 11:08 | PCM.PROG ---
Progress Note - Progress Note for Day of Date: 06/03/17 - Subjective Subjective: IS STATUS POST LEFT HIP FX WITH REPAIR FOLLOWING A FALL. SHE IS CURRENTLY SWINGBED STATUS FOR REHAB AND PHYSICAL THERAPY. TODAY, SHE IS ALERT AND ORIENTED, LYING IN BED ON MORNING ROUNDS. HER DAUGHTER IS AT BEDSIDE. PATIENT DENIES COMPLAINTS AND REPORTS THAT PAIN IS WELL CONTROLLED WITH MEDICATIONS. LEFT HIP IS NOTED WITH A DRESSING, DRY AND INTACT. HEART IS REGULAR IN RATE AND RHYTHM. BILATERAL LUNGS ARE CLEAR TO AUSCULTATION. ABDOMEN IS ROUND, SOFT, AND NON-TENDER WITH NORMAL BOWEL SOUNDS NOTED IN ALL QUADRANTS. HER VITALS THIS MORNING ARE 98.6-73-20-94%-123/65. LABS WERE OBTAINED THIS MORNING. ABNORMAL LAB VALUES INCLUDE THE FOLLOWING: RBC 3.25, HGB 9.6, HCT 29.2 , BUN 25, AST 47, ALK PHOS 329, TOTAL PROTEIN 6.2, ALBUMIN 2.7. SHE CONTINUES TO BE COMPLIANT WITH PHYSICAL THERAPY. SHE HAS BEEN AMBULATING WITH ASSISTANCE OF THE WALKER AROUND THE NURSES STATION. SHE SHOULD BE READY FOR DISCHARGE BY THE END OF THE WEEK. SHE WILL CONTINUE TO WORK WITH PHYSICAL THERAPY IN THE HOSPITAL. AFTER DISCHARGE, WE WILL SET UP HOME HEALTH NURSES FOR WOUND CARE WELL PHYSICAL THERAPY. WE WILL CONTINUE TO MONITOR LABS AND FOLLOW UP WITH PATIENT. - Past Medical Family Social History Past Med/Fam/Surg Hx: No changes since H&P Allergies: Allergies nitrofurantoin [From Macrobid] Allergy (Verified 05/15/17 11:19) - Review of Systems ROS: No change since H&P - Vital Signs and I&O's Vital Signs: Temperature 98.6 F Pulse Rate [Right Brachial] 73 Respiratory Rate 20 Blood Pressure [Right Arm] 123/65 Blood Pressure [Left Arm] 126/62 Blood Pressure 142/67 O2 Sat by Pulse Oximetry 94 Intake and Output: Intake & Output 05/31/17 06/01/17 06/02/17 06/03/17 11:59 11:59 11:59 11:59 Intake Total 0355 247 4128 840 Output Total 450 Balance 1512 808 6679 840 - Physical Exam Oriented: Normal Eyes: Normal Ear: Normal Nose: Normal Throat: Normal Respiratory: Normal Cardiovascular: Normal : Normal Auscultation: Bowel Sounds: Normal Palpation: Normal Tenderness: Normal Skin: Wound (SURGICAL WOUND TO LEFT HIP ), Bruising (LEFT HIP ) Musculoskeletal: Left, Hip, Tender, Instability Psychiatric: Normal Mood Description: Calm Affect: Normal Speech Pattern: Clear, Appropriate - Laboratory and Diagnostics Result Diagrams: 06/03/17 05:40 06/03/17 05:40 Labs: Laboratory WBC 5.2 X10^3/uL (3.6-10.0) 06/03/17 05:40 RBC 3.25 X10^6/uL (3.5-5.4) L 06/03/17 05:40 Hgb 9.6 g/dL (12.0-16.0) L 06/03/17 05:40 Hct 29.2 % (36.0-47.0) L 06/03/17 05:40 MCV 89.8 fL (80.0-100.0) 06/03/17 05:40 MCH 29.4 pg (27.0-34.0) 06/03/17 05:40 MCHC 32.7 g/dL (33.0-35.0) L 06/03/17 05:40 RDW 17.4 % (11.6-16.5) H 06/03/17 05:40 Plt Count 496 X10^3/uL (150.0-450.0) H 06/03/17 05:40 Plt Count Comment Increased (ADEQUATE) A 05/31/17 05:25 MPV 7.7 fL (7.4-11.0) 06/03/17 05:40 Neut % 46.3 % (42.0-75.0) 06/03/17 05:40 Lymph % 30.5 % (21.0-51.0) 06/03/17 05:40 [place] % 9.4 % (0.0-13.0) 06/03/17 05:40 Eos % 12.5 % (0.9-2.9) H 06/03/17 05:40 Baso % 1.3 % (0.2-1.0) H 06/03/17 05:40 Neut # 2.4 x10^3/uL (2.2-4.8) 06/03/17 05:40 Lymph # 1.6 X10^3/uL (1.3-2.9) 06/03/17 05:40 [place] # 0.5 x10^3/uL (0.3-0.8) 06/03/17 05:40 Eos # 0.6 x10^3/uL (0.0-0.2) H 06/03/17 05:40 Baso # 0.1 X10^3/uL (0.0-0.1) 06/03/17 05:40 Absolute Nucleated RBC 0.1 /100WBC 06/03/17 05:40 Plt Morphology Comment Normal (NORMAL) 05/31/17 05:25 RBC Morphology Abnormal (NORMAL) A 05/31/17 05:25 Hypochromasia Slight A 05/31/17 05:25 Microcytosis Slight A 05/31/17 05:25 Target Cells Slight A 05/31/17 05:25 Sodium 142 mmol/L (136-145) 06/03/17 05:40 Corrected Sodium TNP 06/03/17 05:40 Potassium 4.2 mmol/L (3.5-5.1) 06/03/17 05:40 Chloride 105 mmol/L (98-107) 06/03/17 05:40 Carbon Dioxide 29.2 mmol/L (21-32) 06/03/17 05:40 BUN 25 mg/dL (7-18) H 06/03/17 05:40 Creatinine 0.65 mg/dL (0.55-1.02) 06/03/17 05:40 Est GFR (MDRD) Af Amer > 60 (>60) 06/03/17 05:40 Est GFR (MDRD) Non-Af > 60 (>60) 06/03/17 05:40 Glucose 90 mg/dL (65-99) 06/03/17 05:40 Calcium 8.9 mg/dL (8.5-10.1) 06/03/17 05:40 Corrected Calcium 9.9 mg/dL (8.5-10.1) 06/03/17 05:40 Total Bilirubin 0.20 mg/dL (0.2-1.0) 06/03/17 05:40 AST 47 Units/L (15-37) H 06/03/17 05:40 ALT 66 Units/L (12-78) 06/03/17 05:40 Alkaline Phosphatase 329 Units/L (46-116) H 06/03/17 05:40 Total Protein 6.0 g/dL (6.4-8.2) L 06/03/17 05:40 Albumin 2.7 g/dL (3.4-5.0) L 06/03/17 05:40 Globulin 3.3 g/dL (2.5-4.5) 06/03/17 05:40 Albumin/Globulin Ratio 0.8 Ratio (1.1-2.1) L 06/03/17 05:40 Specimen Type Clean catch urine 05/31/17 15:16 Urine Color Yellow (YELLOW) 05/31/17 15:16 Urine Appearance Hazy (CLEAR) 05/31/17 15:16 Urine pH 6.5 (5.0 - 8.0) 05/31/17 15:16 Ur Specific [place] 1.015 (1.000-1.030) 05/31/17 15:16 Urine Protein Negative (NEGATIVE) 05/31/17 15:16 Urine Glucose (UA) Negative (NEGATIVE) 05/31/17 15:16 Urine Ketones Negative (NEGATIVE) 05/31/17 15:16 Urine Occult Blood 1+ (NEGATIVE) 05/31/17 15:16 Urine Nitrite Negative (NEGATIVE) 05/31/17 15:16 Urine Bilirubin Negative (NEGATIVE) 05/31/17 15:16 Urine Urobilinogen Normal (NORMAL) 05/31/17 15:16 Ur Leukocyte Esterase 2+ (NEGATIVE) 05/31/17 15:16 Urine RBC 0-2 /HPF (NEGATIVE) 05/31/17 15:16 Urine WBC 3-5 /HPF (NEGATIVE) 05/31/17 15:16 Ur Squamous Epith Cells Rare /HPF (NEGATIVE) 05/31/17 15:16 Urine Bacteria Trace /HPF (NEGATIVE) 05/31/17 15:16 Ur Culture Indicated? No/not indicated 05/31/17 15:16 - Plan (1) Status post-operative repair of closed hip fracture Status: Acute Plan: PHYSICAL THERAPY, WOUND CARE, CONTINUE TO MONITOR
[2017-06-03] MEDS: REMERON PO SCH (20:33)
[2017-06-04] MEDS: NEURONTIN CAP 300 MG PO SCH ×3 (05:13→21:02)
[2017-06-04] MEDS: BUSPAR PO SCH ×2 (08:39→21:02)
[2017-06-04] MEDS: VITAMIN C PO SCH (08:39)
[2017-06-04] MEDS: TAB-A-VITE PO SCH (08:39)
[2017-06-04] MEDS: ASPIRIN 81 MG CHEWTAB PO SCH (08:39)
[2017-06-04] MEDS: ZINC SULFATE PO SCH (08:40)
[2017-06-04] MEDS: ROCEPHIN VIAL 1 GM 1 GM in NS 100 ML IV 100 ML IV SCH (08:41)
[2017-06-04] MEDS: LOVENOX INJ 40 MG SYR SC SCH (08:42)
[2017-06-04] MEDS: REMERON PO SCH (21:02)
[2017-06-05] MEDS: NEURONTIN CAP 300 MG PO SCH ×2 (05:26→13:49)
[2017-06-05 08:15] VITALS: BP 121/56
[2017-06-05] MEDS: ROCEPHIN VIAL 1 GM 1 GM in NS 100 ML IV 100 ML IV SCH (08:38)
[2017-06-05] MEDS: VITAMIN C PO SCH (08:42)
[2017-06-05] MEDS: BUSPAR PO SCH (08:42)
[2017-06-05] MEDS: ASPIRIN 81 MG CHEWTAB PO SCH (08:42)
[2017-06-05] MEDS: TAB-A-VITE PO SCH (08:42)
[2017-06-05] MEDS: LOVENOX INJ 40 MG SYR SC SCH (08:42)
[2017-06-05] MEDS: ZINC SULFATE PO SCH (08:43)
== END 2017-06-05 14:10 | disposition home health service (06) | DRG 189 ==
LOC: MED/SURG 13:10
PROVIDERS: ADMIT Internal Medicine; ATTEND Internal Medicine
DX: J96.22 Acute and chronic respiratory failure with hypercapnia (principal); J44.1 Chronic obstructive pulmonary disease with (acute) exacerbation; Z51.89 Encounter for other specified aftercare; Z91.81 History of falling; R94.31 Abnormal electrocardiogram [ECG] [EKG]; I12.9 Hypertensive chronic kidney disease with stage 1 through stage 4 chronic kidney disease, or unspecified chronic kidney disease; N18.9 Chronic kidney disease, unspecified; R53.1 Weakness; I50.9 Heart failure, unspecified; R11.2 Nausea with vomiting, unspecified; R60.1 Generalized edema; R26.89 Other abnormalities of gait and mobility
CPT/HCPCS: 36415; 80053; 81001; 85025; 97535; A4222; Q0177; J0696; J1650

== ENCOUNTER 2018-11-28 19:42 | Observation (INO) ==
[2018-11-28 20:05] VITALS: BMI 21.0
--- NOTE | 2018-11-28 20:29 | DR.GENAD ---
HPI Time Seen Time Seen by Provider: 11/28/18 20:22 PCP Primary Care Physician: DR. JONES Complaint/Symptoms Chief Complaint:: DAUGHTER STATES THAT PATIENT IS NOT ACTING RIGHT. STATES SHE IS WEAK AND UNABLE TO STAND AND THAT SHE IS CONFUSED. Source History Provided: Family Member Mode of Arrival Mode of Arrival: Wheelchair Timing Onset of Chief Complaint: 11/28/18 PMH PMH Past Medical History: Yes Past Medical History: Anxiety, CVA, Dyslipidemia and Hypertension Past Surgical History: Yes Surgical History: Appendectomy and Other Past Surgical History Comment: HERNIA REPAIR Family History History of Family Medical Conditions: Yes Family Medical History: Coronary Artery Disease and Hypertension Social History Does patient currently use any type of tobacco product: No Have you used tobacco products in the last 12 months: No Type of Tobacco Use: None Alcohol Use: None Do you use any recreational Drugs:: No Lives With: Alone and Family Lives Where: Home infectious screening In the last 2 months have you had wt loss of >10#?: NO Have you had fever, night sweats or hemotysis?: No Have you traveled outside the country in the last 6 months?: No Isolation: Standard PE Vital Signs Vitals: Temperature 98.0 F Pulse Rate 91 Respiratory Rate 18 Blood Pressure [Right Arm] 121/56 Blood Pressure [Left Arm] 126/62 Blood Pressure 149/75 O2 Sat by Pulse Oximetry 98 ROR Labs Reviewed Result Diagrams: 11/28/18 20:45 11/28/18 20:45 Laboratory: WBC 7.2 X10^3/uL (3.6-10.0) 11/28/18 20:45 RBC 4.32 X10^6/uL (3.5-5.4) 11/28/18 20:45 Hgb 10.0 g/dL (12.0-16.0) L 11/28/18 20:45 Hct 32.0 % (36.0-47.0) L 11/28/18 20:45 MCV 74.0 fL (80.0-100.0) L 11/28/18 20:45 MCH 23.1 pg (27.0-34.0) L 11/28/18 20:45 MCHC 31.2 g/dL (33.0-35.0) L 11/28/18 20:45 RDW 21.0 % (11.6-16.5) H 11/28/18 20:45 Plt Count 523 X10^3/uL (150.0-450.0) H 11/28/18 20:45 Plt Count Comment Increased (ADEQUATE) A 11/28/18 20:45 MPV 7.5 fL (7.4-11.0) 11/28/18 20:45 Neut % (Auto) 56.4 % (42.0-75.0) 11/28/18 20:45 Lymph % (Auto) 27.4 % (21.0-51.0) 11/28/18 20:45 Wallace % (Auto) 7.9 % (0.0-13.0) 11/28/18 20:45 Eos % (Auto) 6.1 % (0.9-2.9) H 11/28/18 20:45 Baso % (Auto) 2.2 % (0.2-1.0) H 11/28/18 20:45 Neut # (Auto) 4.0 x10^3/uL (2.2-4.8) 11/28/18 20:45 Lymph # (Auto) 2.0 X10^3/uL (1.3-2.9) 11/28/18 20:45 Wallace # (Auto) 0.6 x10^3/uL (0.3-0.8) 11/28/18 20:45 Eos # (Auto) 0.4 x10^3/uL (0.0-0.2) H 11/28/18 20:45 Baso # (Auto) 0.2 X10^3/uL (0.0-0.1) H 11/28/18 20:45 Absolute Nucleated RBC 0.1 /100WBC 11/28/18 20:45 Plt Morphology Comment Normal (NORMAL) 11/28/18 20:45 RBC Morphology Abnormal (NORMAL) A 11/28/18 20:45 Hypochromasia 1+ A 11/28/18 20:45 Anisocytosis 1+ A 11/28/18 20:45 Microcytosis 1+ A 11/28/18 20:45 Sodium 140 mmol/L (136-145) 11/28/18 20:45 Corrected Sodium TNP 11/28/18 20:45 Potassium 4.2 mmol/L (3.5-5.1) 11/28/18 20:45 Chloride 106 mmol/L (98-107) 11/28/18 20:45 Carbon Dioxide 23.1 mmol/L (21-32) 11/28/18 20:45 BUN 20 mg/dL (7-18) H 11/28/18 20:45 Creatinine 1.09 mg/dL (0.55-1.02) H 11/28/18 20:45 Est GFR (MDRD) Af Amer > 60 (>60) 11/28/18 20:45 Est GFR (MDRD) Non-Af 51 (>60) L 11/28/18 20:45 Glucose 96 mg/dL (65-99) 11/28/18 20:45 Calcium 9.2 mg/dL (8.5-10.1) 11/28/18 20:45 Corrected Calcium TNP 11/28/18 20:45 Total Bilirubin 0.50 mg/dL (0.2-1.0) 11/28/18 20:45 AST 27 Units/L (15-37) 11/28/18 20:45 ALT 11 Units/L (12-78) L 11/28/18 20:45 Alkaline Phosphatase 117 Units/L (46-116) H 11/28/18 20:45 Creatine Kinase 77 Units/L (26-192) 11/28/18 20:45 CK-MB (CK-2) 1.1 ng/mL (0-4.0) 11/28/18 20:45 CK/CKMB % Calc 1.4 % (<4) 11/28/18 20:45 Troponin I < 0.02 ng/mL (0-1.5) 11/28/18 20:45 Total Protein 8.0 g/dL (6.4-8.2) 11/28/18 20:45 Albumin 3.8 g/dL (3.4-5.0) 11/28/18 20:45 Globulin 4.2 g/dL (2.5-4.5) 11/28/18 20:45 Albumin/Globulin Ratio 0.9 Ratio (1.1-2.1) L 11/28/18 20:45 Specimen Type Catherized urine 11/28/18 22:50 Urine Color Yellow (YELLOW) 11/28/18 22:50 Urine Appearance Clear (CLEAR) 11/28/18 22:50 Urine pH 5.0 (5.0 - 8.0) 11/28/18 22:50 Ur Specific Crawford 1.025 (1.000-1.030) 11/28/18 22:50 Urine Protein 1+ (NEGATIVE) 11/28/18 22:50 Urine Glucose (UA) Negative (NEGATIVE) 11/28/18 22:50 Urine Ketones Negative (NEGATIVE) 11/28/18 22:50 Urine Occult Blood Negative (NEGATIVE) 11/28/18 22:50 Urine Nitrite Negative (NEGATIVE) 11/28/18 22:50 Urine Bilirubin Negative (NEGATIVE) 11/28/18 22:50 Urine Urobilinogen 1+ (NORMAL) 11/28/18 22:50 Ur Leukocyte Esterase Negative (NEGATIVE) 11/28/18 22:50 Urine RBC None seen /HPF (NONE SEEN) 11/28/18 22:50 Urine WBC None seen /HPF (NONE SEEN) 11/28/18 22:50 Ur Squamous Epith Cells Negative /HPF (NEGATIVE) 11/28/18 22:50 Urine Bacteria Negative /HPF (NEGATIVE) 11/28/18 22:50 Urine Mucus Rare /HPF (NEGATIVE) 11/28/18 22:50 Ur Culture Indicated? No/not indicated 11/28/18 22:50 Opioid Opioid Risk Tool Total: 0 Total Score Risk Category: Low Risk Copyright: José Miguel BROWN predicting aberrant behaviors Instructions Forms: Excuse From Work
[2018-11-28 21:01] LABS: BASOPHILS # (AUTO) 0.2 X10^3/uL (0.0-0.1); BASOPHILS % (AUTO) 2.2 % (0.2-1.0); EOSINOPHILS # (AUTO) 0.4 x10^3/uL (0.0-0.2); EOSINOPHILS % (AUTO) 6.1 % (0.9-2.9); LYMPHOCYTES % (AUTO) 27.4 % (21.0-51.0); MEAN CORPUSCULAR HEMOGLOBIN 23.1 pg (27.0-34.0); MEAN CORPUSCULAR HGB CONC 31.2 g/dL (33.0-35.0); MEAN PLATELET VOLUME 7.5 fL (7.4-11.0); MONOCYTES # (AUTO) 0.6 x10^3/uL (0.3-0.8); MONOCYTES % (AUTO) 7.9 % (0.0-13.0); NEUTROPHILS % (AUTO) 56.4 % (42.0-75.0); PLATELET COUNT 523 X10^3/uL (150.0-450.0); RED BLOOD COUNT 4.32 X10^6/uL (3.5-5.4); WHITE BLOOD COUNT 7.2 X10^3/uL (3.6-10.0)
[2018-11-28 21:10] LABS: BLOOD UREA NITROGEN 20 mg/dL (7-18); CALCIUM 9.2 mg/dL (8.5-10.1); CARBON DIOXIDE 23.1 mmol/L (21-32); CHLORIDE 106 mmol/L (98-107); CREATININE 1.09 mg/dL (0.55-1.02); SODIUM 140 mmol/L (136-145); TROPONIN I < 0.02 ng/mL (0-1.5); eGFR NON BLACK RACES 51 (>60)
[2018-11-28 21:14] LABS: ALANINE AMINOTRANSFERASE 11 Units/L (12-78); ALBUMIN 3.8 g/dL (3.4-5.0); ALKALINE PHOSPHATASE 117 Units/L (46-116); CKMB % 1.4 % (<4); CREATINE KINASE 77 Units/L (26-192); CREATINE KINASE MB 1.1 ng/mL (0-4.0)
[2018-11-28 21:15] LABS: PLATELET MORPHOLOGY COMMENT NORMAL (NORMAL)
[2018-11-28 21:16] LABS: ANISOCYTOSIS 1+; HYPOCHROMASIA 1+; MICROCYTOSIS 1+
[2018-11-28 21:18] LABS: ASPARTATE AMINO TRANSFERASE 27 Units/L (15-37)
[2018-11-28 23:05] LABS: BILIRUBIN,URINE NEGATIVE (NEGATIVE); BLOOD/HEMOGLOBIN,URINE NEGATIVE (NEGATIVE); GLUCOSE, URINE NEGATIVE (NEGATIVE); KETONES,URINE NEGATIVE (NEGATIVE); LEUKOCYTE ESTERASE ,URINE NEGATIVE (NEGATIVE); NITRITES,URINE NEGATIVE (NEGATIVE); PROTEIN,URINE 1+ (NEGATIVE); UROBILINOGEN,URINE 1+ (NORMAL)
[2018-11-28 23:14] LABS: APPEARANCE,URINE CLEAR (CLEAR); BACTERIA,URINE NEGATIVE /HPF (NEGATIVE); COLOR,URINE YELLOW (YELLOW); MUCUS,URINE RARE /HPF (NEGATIVE); RBC,URINE NONE SEEN /HPF (NONE SEEN); SQUAMOUS EPITHELIAL CELL,UR NEGATIVE /HPF (NEGATIVE)
[2018-11-29] MEDS: NS 1000 ML 1,000 ML IV SCH ×3 (02:06→16:01)
[2018-11-29] MEDS: NS 1000 ML 1,000 ML ONE (02:07)
[2018-11-29 05:25] LABS: BASOPHILS # (AUTO) 0.1 X10^3/uL (0.0-0.1); BASOPHILS % (AUTO) 1.5 % (0.2-1.0); EOSINOPHILS # (AUTO) 0.5 x10^3/uL (0.0-0.2); EOSINOPHILS % (AUTO) 6.9 % (0.9-2.9); HEMATOCRIT 33.3 % (36.0-47.0); HEMOGLOBIN 10.4 g/dL (12.0-16.0); LYMPHOCYTES # (AUTO) 2.3 X10^3/uL (1.3-2.9); LYMPHOCYTES % (AUTO) 32.4 % (21.0-51.0); MEAN CORPUSCULAR HEMOGLOBIN 22.8 pg (27.0-34.0); MEAN CORPUSCULAR HGB CONC 31.3 g/dL (33.0-35.0); MEAN CORPUSCULAR VOLUME 72.8 fL (80.0-100.0); MEAN PLATELET VOLUME 7.3 fL (7.4-11.0); MONOCYTES # (AUTO) 0.4 x10^3/uL (0.3-0.8); NEUTROPHILS # (AUTO) 3.7 x10^3/uL (2.2-4.8); NEUTROPHILS % (AUTO) 53.2 % (42.0-75.0); PLATELET COUNT 499 X10^3/uL (150.0-450.0); RED BLOOD COUNT 4.58 X10^6/uL (3.5-5.4); RED CELL DISTRIBUTION WIDTH 20.9 % (11.6-16.5)
[2018-11-29 05:44] LABS: ALANINE AMINOTRANSFERASE 11 Units/L (12-78); ALBUMIN 3.7 g/dL (3.4-5.0); ALKALINE PHOSPHATASE 119 Units/L (46-116); ASPARTATE AMINO TRANSFERASE 19 Units/L (15-37); BLOOD UREA NITROGEN 18 mg/dL (7-18); CALCIUM 9.1 mg/dL (8.5-10.1); CARBON DIOXIDE 23.9 mmol/L (21-32); CHLORIDE 107 mmol/L (98-107); CREATININE 0.94 mg/dL (0.55-1.02); MAGNESIUM 2.1 mg/dL (1.7-2.9); SODIUM 142 mmol/L (136-145); TOTAL PROTEIN 7.8 g/dL (6.4-8.2); eGFR NON BLACK RACES > 60 (>60)
[2018-11-29 06:16] LABS: PLATELET MORPHOLOGY COMMENT NORMAL (NORMAL)
[2018-11-29 06:17] LABS: ANISOCYTOSIS 1+; HYPOCHROMASIA 1+; MICROCYTOSIS SLIGHT
[2018-11-29] MEDS ORDERED: POTASSIUM CHLORIDE LIQ 20 MEQ UDC PO PRN (06:38)
[2018-11-29] MEDS ORDERED: K-DUR TAB 20 MEQ PO PRN (06:38)
[2018-11-29] MEDS ORDERED: POTASSIUM CHL 60 MEQ/NS 0.45% 500 ML IV PRN (06:38)
[2018-11-29] MEDS ORDERED: POTASSIUM CHL 40 MEQ/NS 0.45% 500 ML IV PRN (06:38)
[2018-11-29] MEDS ORDERED: KLOR-CON PO PRN (06:38)
[2018-11-29] MEDS ORDERED: K-RIDER 10 MEQ/NS 100 ML 10 MEQ/100 ML BAG IV PRN (06:38)
[2018-11-29] MEDS ORDERED: MICRO K EXTEN CAP 10 MEQ PO PRN (06:38)
--- NOTE | 2018-11-29 21:28 | DR.H&P ---
H&P - History & Physical for Day of: H&P Date: 11/29/18 - Chief Complaint Chief Complaint: WEAKNESS, CONFUSION - History of Present Illness History of Present Illness: IS A 83 YEAR OLD PATIENT OF OURS WHO PRESENTED TO THE ER WITH FAMILY MEMBERS REPORTING CONFUSION AND WEAKNESS. THEY REPORT THAT PATIENT IS UNABLE TO STAND AND HAS HAD A DECREASED APPETITE. PAST MEDICAL HISTORY INCLUDES ANXIETY, CVA, DYSLIPIDEMIA, AND HTN. ON ARRIVAL, VITALS WERE 98.0-91-18-98%-149/75. LABS WERE OBTAINED. ABNORMAL LAB VALUES INCLUDE THE FOLLOWING: HGB 10.0, HCT 32.0, PLT COUNT 523, BUN 20, CREATININE 1.09, ALT 11, ALK PHOS 117. URINALYSIS IS UNREMARKABLE. AN EKG WAS OBTAINED AND REVEALED: SINUS RHYTHM WITH HR 80. WE ADMITTED PATIENT FOR FURTHER EVALUATION AND TREATMENT OF ALTERED MENTAL STATUS, GENERALIZED WEAKNESS, AND DEHYDRATION. SHE W STARTED ON NORMAL SALINE AT 75ML/HR. WE PLAN TO FOLLOW UP WITH AM LABS AND CONTINUE TO MONITOR. - Past Medical History Past Medical History: Hypertension, Dyslipidemia, Anxiety, CVA - Past Surgical History Surgical History: Appendectomy - Family History Family Medical History: Diabetes Mellitus, ND, Hypertension - Social History Does patient currently use any type of tobacco product: No Have you used tobacco products in the last 12 months: No Type of Tobacco Use: None Alcohol Use: None Drug Use: None Prescription drug monitoring program results: PDMP reviewed and no concerns identified - Medications Home Medications: nitrofurantoin [From Macrobid] Allergy (Verified 05/15/17 11:19) CONTINUE taking the following medications amlodipine 5 mg PO DAILY 11/29/18 [History] megestrol 40 mg PO BID 11/29/18 [History] memantine 10 mg PO BID 11/29/18 [History] simvastatin 10 mg PO DAILY 11/29/18 [History] - Review of Systems Constitutional: See HPI, Weakness Eyes: No Symptoms Reported ENT: No Symptoms Reported Respiratory: No Symptoms Reported Cardiovascular: No Symptoms Reported Gastrointestinal: No Symptoms Reported Genitourinary: No Symptoms Reported Musculoskeletal: No Symptoms Reported Skin: No Symptoms Reported Neurological: See HPI, Weakness, Confusion - Physical Exam Vital Signs: Temperature 98.1 F Pulse Rate [Brachial] 92 Pulse Rate 91 Respiratory Rate 20 Blood Pressure [Right Arm] 146/75 Blood Pressure [Left Arm] 126/62 Blood Pressure 149/75 O2 Sat by Pulse Oximetry 98 Oriented: Not Oriented Eyes: Normal Ear: Normal Nose: Normal Throat: Normal Respiratory: Diminished Throughout Cardiovascular: Normal. negative: S3, S4, Murmur : Normal Auscultation: Bowel Sounds: Normal Palpation: Normal Tenderness: Normal Skin: Decreased Turgur Musculoskeletal: Normal Psychiatric: Agitation Mood Description: Anxious Affect: Anxious Speech Pattern: Inappropriate - Assessment/Plan (1) Dehydration Status: Acute Plan: ADMIT, IV FLUIDS, CONTINUE TO MONITOR (2) Altered mental status Qualifiers: Altered mental status type: transient alteration of awareness Qualified Code(s): R40.4 - Transient alteration of awareness Status: Acute (3) Generalized weakness Status: Acute - Allergies Allergies/Adverse Reactions: Allergies Allergy/AdvReac Type Severity Reaction Status Date / Time nitrofurantoin Allergy Verified 05/15/17 11:19 [From Macrobid]
[2018-11-30] MEDS: NS 1000 ML 1,000 ML IV SCH (04:44)
[2018-11-30 10:22] VITALS: BP 120/58
[2018-11-30] MEDS ORDERED: HEMOCYTE-PLUS PO SCH (11:00)
[2018-11-30] MEDS ORDERED: PHARMACY CONSULT - DOSE _____ XX SCH (13:00)
--- NOTE | 2018-11-30 13:16 | MRI ---
HISTORY: Altered mental status. Dehydration. Generalized weakness. Noncontrast MRI examination of the brain. Technique: Multiplanar multi-sequence MRI of the brain was obtained utilizing standard or protocol. Sagittal and axial T1 weighted images were obtained. Axial T2 and flair weighted images were performed as well. Axial diffusion weighted and ADC trace mapping was performed. Comparison: Head CT examination dated 02/12/2016. Findings: The midline structures appear unremarkable. There is no evidence for cerebellar tonsillar ectopia. There is moderate sulcal and cisternal prominence as well as diffuse periventricular white matter T2 signal alteration seen in the high and mid convexities, which is somewhat out of portion to patient's stated age. No significant midline shift or herniation syndrome is observed. The evaluation of the brain parenchyma demonstrates no abnormal signal characteristics to suggest intraparenchymal mass or hemorrhage. No extra-axial fluid collections are observed. The ventricular system appears symmetric and nondilated. The CP angle is normal in its appearance without brainstem mass or evidence for acoustic neuroma. The flow voids on both T1 and T2 weighted imaging appear unremarkable. Evaluation of the diffusion weighted imaging does not demonstrate abnormal signal characteristics to suggest acute ischemic change. The extracranial structures are unremarkable. The paranasal sinuses are clear. IMPRESSION: No acute intracranial process, mass lesion, or acute CVA appreciated. 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 Chronic bilateral lacunar CVAs also seen. Reported By:
== END 2018-11-30 14:40 | disposition home or self-care (01) ==
LOC: SUPCPDRO → MED/SURG 19:51 → ER 19:51 → MED/SURG 11-29 01:39
PROVIDERS: ADMIT Internal Medicine; ATTEND Internal Medicine
DX: R40.4 Transient alteration of awareness; F41.8 Other specified anxiety disorders; E78.2 Mixed hyperlipidemia; I10 Essential (primary) hypertension; E86.0 Dehydration; R56.1 Post traumatic seizures; R94.31 Abnormal electrocardiogram [ECG] [EKG]
CPT/HCPCS: 36415; 51701; 70551; 71010; 71045; 80053; 81001; 82550; 82553; 83735; 84484; 85025; 93005; 94760; 96365; 96367; 99284; A4222; G0378; J7030